=== PATIENT | male | born 1950 | race Caucasian/White ===

== ENCOUNTER 2022-03-12 10:35 | Emergency (ER) | payer BC, SELFPAY ==
--- NOTE | ~2022-03-12 | CT_ITS ---
EXAMINATION: CT HEAD WITHOUT CONTRAST CLINICAL INFORMATION: Status post fall with head strike. COMPARISON: None TECHNIQUE: Contiguous axial imaging was performed from the skull base to vertex without intravenous administration of contrast. Coronal and sagittal reformatted images were obtained. This CT examination was performed using dose optimization techniques as appropriate, variously including the following: *Automated exposure control *Adjustment of mA and/or kV according to patient size (this includes techniques or standardized protocols for targeted exams where dose is matched to indication/reason for exam; i.e. extremities or head) *Use of iterative reconstruction technique DLP: 10/21/2021 mGy-cm FINDINGS: There is mild widening of the cortical sulci and associated ventriculomegaly. Mild periventricular microvascular changes are seen. The lateral ventricles are symmetrical. The third and fourth ventricles are in their normal midline position. The basilar and prepontine cisterns are unremarkable. Asymmetric low-attenuation is seen posteriorly in the left parietal lobe extending to encephalomalacia posteriorly in the left occipital lobe in the distribution of the left posterior cerebral artery. There is no acute intra or extracerebral abnormality. There is no mass effect or midline shift. Sections through the bony calvarium are unremarkable. The orbits are intact. The paranasal sinuses are clear. The mastoid air cells are clear. CT/CT head/brain wo IV con IMPRESSION: No acute intracranial pathology. Chronic appearing left occipital lobe infarct. Correlate with patient history.
--- NOTE | ~2022-03-12 | CT_ITS ---
EXAMINATION: CT CERVICAL SPINE WITHOUT CONTRAST CLINICAL INFORMATION: Neck pain status post fall. COMPARISON: None TECHNIQUE: Multiple axial images of the cervical spine were obtained without the administration of intravenous contrast. Coronal and sagittal reformatted images were obtained. This CT examination was performed using dose optimization techniques as appropriate, variously including the following: *Automated exposure control *Adjustment of mA and/or kV according to patient size (this includes techniques or standardized protocols for targeted exams where dose is matched to indication/reason for exam; i.e. extremities or head) *Use of iterative reconstruction technique DLP: 395.31 mGy-cm FINDINGS: There is straightening of the normal cervical lordosis with normal spinal alignment. Moderate to severe multilevel degenerative disc disease is seen from C4-5 to C6-7 with disc space narrowing, marginal osteophyte formation and bilateral neural foraminal narrowing. Mild multilevel bilateral facet arthropathy is seen. The spinous processes are intact. The odontoid process is intact with mild articulating degenerative changes. The cervical soft tissues are unremarkable. There is no lymphadenopathy. Mild to moderate atherosclerosis is seen in the carotid bulbs bilaterally. The thyroid gland is unremarkable. CT/CT cervical spine wo IV con IMPRESSION: 1. Straightening of the normal cervical lordosis may be secondary to positioning and/or muscle spasm. 2. Multilevel degenerative changes without acute abnormality.
--- NOTE | ~2022-03-12 | XR_ITS ---
EXAMINATION: XR CHEST CLINICAL INFORMATION: Status post fall and neck pain. COMPARISON: None TECHNIQUE: Frontal view of the chest was obtained. FINDINGS: There is a right lower lobe patchy opacity with mild tenting of the right diaphragm and elevation of right hemidiaphragm. Rest of the lungs are clear and expanded. The heart size and progress clarities normal. No gross bony abnormality seen. There is mild dextro scoliosis of lower dorsal spine. XR/XR chest 1V IMPRESSION: Right lower lobe patchy opacity with tenting of the right diaphragm and elevation of right hemidiaphragm, suspicious for developing infiltrate
[2022-03-12 10:42] VITALS: BP 140/75; PULSE 100; RESP 18; TEMP 36.7; O2SAT 98; BMI 20.7
--- NOTE | 2022-03-12 10:56 | ED.FALL ---
HPI - Fall General Chief Complaint: Fall Stated Complaint: fall neck inj and cough covid + Time Seen by Provider: 03/12/22 10:55 Source: patient and family Mode of arrival: ambulatory Limitations: no limitations History of Present Illness HPI Narrative: 71 yo male with history of DVT in the past, HTN, DM2, hx CVA in 2019 noncompliant with medications who presents to the ER for evaluation after he was diagnosed with COVID a few days ago. He has been weak resulting in 2 falls at home a few days ago. He hit his head and has been having a stiff neck and neck pain. He reports cough and congestion with difficulty breathing at times. He has not been taking his diabetes medications and not checking his sugar. He denies any nausea, vomiting, abdominal pain he has had some intermittent fevers and chills. No dyspnea on exertion or chest pain. MD complaint: fall and other (weakness, cough, COVID+) Onset (ago): day(s) Fall from: standing Fall witnessed: yes, by family Place fall occurred: home Loss of consciousness: none Prolonged down time: no Symptoms prior to fall: none Context: tripped/slipped Location of injury: head and neck Severity: moderate Severity scale (1-10): 5 Quality: aching and spasming Associated symptoms (after fall): neck pain and shortness of breath Related Data Previous Rx's Medication Instructions Recorded albuterol sulfate 90 mcg/actuation 2 inh inhalation QID PRN shortness 03/12/22 aerosol inhaler of breath or wheezing #6.7 grams doxycycline hyclate 100 mg tablet 100 mg PO BID #20 tabs 03/12/22 glipizide 10 mg tablet 10 mg PO DAILY #30 tabs 03/12/22 metformin 1,000 mg tablet,extended 1,000 mg PO BID #60 tabs 03/12/22 release 24hr Allergies Allergy/AdvReac Type Severity Reaction Status Date / Time No Known Allergies Allergy Verified 03/12/22 10:49 Review of Systems Review of Systems: Constitutional: No Fever, + Chills ENT/Mouth: + sore throat, No Rhinorrhea, No Swallowing Difficulty Eyes: No Eye Pain, No Swelling, No Redness Cardiovascular: No Chest Pain, No SOB, No Orthopnea, No Edema Respiratory: + Cough, No Sputum, No Wheezing, No dyspnea Gastrointestinal: No Nausea, No Vomiting, No Diarrhea, No abdominal Pain Genitourinary: No Dysuria, No Urinary Frequency, No Hematuria Musculoskeletal: + joint pain, + Myalgias Skin: No Skin Lesions, No rash Neuro: + Weakness, No Numbness, No Dizziness, No Headache Psych: No Anxiety/Panic, No Depression Heme/Lymph: No Bruising, No Lymphadenopathy Endocrine: + Polyuria, + Polydipsia PMFSH Social History Social History Advance Directives: No Advance Directives Information Provided: Yes Physical Exam Vital Signs: Vital Signs: Last Vital Signs Temp 97.8 F 03/12/22 12:39 Pulse 61 03/12/22 12:39 Resp 14 03/12/22 12:39 BP 129/63 03/12/22 12:39 Pulse Ox 97 03/12/22 12:39 O2 Del Method 03/12/22 12:39 BMI result Body Mass Index 20.7 Appearance: Alert. Oriented X3. No acute distress. Head: scap on the posterior scalp Eyes: Pupils equal, round and reactive to light. ENT: Pharynx normal. Poor dentition Neck: Normal inspection. Neck supple. CVS: Normal heart rate and rhythm. Pulses normal. Respiratory: No respiratory distress. Breath sounds normal. Abdomen: Soft and nontender. +BS x4 Skin: Skin warm and dry. Normal skin color. Normal skin turgor. No rashes. Extremities: No lower extremity edema. chronic venous stasis changed R>L. dry flakey skin Neuro: Oriented X 3. Slow but steady gait. moderate diffuse weakness. Course Course Course Narrative: 71-year-old male with history of uncontrolled diabetes, noncompliant with medications, history of stroke in the past, PVD with recurring falls who presents to the ER for evaluation of neck pain, headaches, cough, shortness of breath after being diagnosed with COVID last week. Increased cough and congestion at home. On arrival to the ER patient's vital signs are stable. His lungs are clear. He is in no respiratory distress. Will check CT of his head and neck given recent trauma, basic labs, EKG, chest x-ray. Reevaluation(s) Reevaluation #1: Chest x-ray with possible evolving right lower lobe pneumonia. No leukocytosis on CBC. Chemistries unremarkable aside from significant hyperglycemia. Sugars 460. Hemoglobin A1c added on and is greater than 14%. Discussed the importance of compliance with medications and long-term affects of being noncompliant. Patient expressed understanding Seen by Physical therapy was recommending home with physical therapy services. Comfortable discharge home with family, oral antibiotics, p.r.n. albuterol and home PT. Additional prescriptions of his metformin and glipizide sent to his pharmacy. Consultations Consultation #1: Case management and physical therapy Medications Administered Discontinued Medications Generic Name Dose Route Start Last Admin Trade Name Freq PRN Reason Stop Dose Admin Sodium Chloride 1,000 mls @ 999 mls/hr 03/12/22 12:00 03/12/22 12:30 Ns IVCONT 03/12/22 13:00 999 mls/hr .Q1H1M CHERELLE Administration Insulin Human Lispro 12 unit 03/12/22 11:46 03/12/22 12:30 Insulin Lispro 100 Unit/Ml 3 Ml Vial SUBCUT 03/12/22 11:47 12 unit ONCE ONE Administration Metformin HCl 1,000 mg 03/12/22 11:47 03/12/22 12:29 Metformin Hcl 1,000 Mg Tablet PO 03/12/22 11:48 1,000 mg ONCE ONE Administration MDM - Fall Medical Records Attestation: I reviewed the patient's medical records. Lab Data Attestation: I reviewed the patient's lab results. Result diagrams: 03/12/22 11:03 03/12/22 11:03 Labs: Lab Results 03/12/22 03/12/22 03/12/22 Range/Units 11:03 11:03 11:03 WBC 10.8 (4.8-10.8) X10*3/uL RBC 5.35 (4.60-5.80) X10*6/uL Hgb 15.8 (14.0-18.0) g/dl Hct 44.9 (42.0-52.0) % MCV 83.9 (80.0-98.0) fL MCH 29.5 (27.0-33.0) pg MCHC 35.2 (31.0-36.0) g/dl RDW 11.7 (11.0-16.0) % Plt Count 326 (160-400) X10*3/uL MPV 9.6 (9.4-12.4) fL Immature Gran % (Auto) 0.4 (0.0-0.4) % Neut % (Auto) 77.8 H (45-73) % Lymph % (Auto) 12.6 L (20-40) % Edgar % (Auto) 8.1 (2-11) % Eos % (Auto) 0.7 (0-4) % Baso % (Auto) 0.4 (0-2) % Lymph # (Auto) 1.4 (1.2-4.9) X10*3/uL Edgar # (Auto) 0.9 (0.1-1.2) X10*3/uL Eos # (Auto) 0.1 (0.0-0.4) X10*3/uL Baso # (Auto) 0.0 (0.0-0.2) X10*3/uL Abs Immat Gran (auto) 0.04 H (0.00-0.03) X10*3/uL Absolute Neuts (auto) 8.4 H (2.0-8.3) x10*3/uL Absolute Nucleated RBC 0.000 (0.0-0.012) X10*3/uL Nucleated RBC % (auto) 0.0 (0.0-0.2) /100WBC PT 11.2 (10.0-13.1) SEC INR 1.0 (0.9-1.1) APTT 32.7 (26.0-36.4) SEC Sodium 136 (135-145) mmol/L Potassium 4.6 (3.3-5.1) mmol/L Chloride 95 L (96-108) mmol/L Carbon Dioxide 28 (22-29) mmol/L Anion Gap 18 (12-20) BUN 13 (9-16) mg/dL Creatinine 1.11 (0.5-1.4) mg/dL Estim Creat Clear Calc 50.9 Estimated GFR > 60 POC Glucose (60-115) mg/dL Random Glucose 462 H* (60-115) mg/dL Estimat Average Glucose Hemoglobin A1c % % Calcium 9.9 (8.4-10.2) mg/dL Magnesium 1.7 (1.6-2.6) mg/dL Total Bilirubin 0.5 (0.0-1.0) mg/dL Direct Bilirubin 0.3 (0.0-0.5) mg/dL AST 17 (5-37) U/L ALT 17 (0-40) U/L Alkaline Phosphatase 118 H (39-117) U/L Total Protein 7.5 (6.5-8.0) g/dL Albumin 3.7 (3.5-5.0) g/dL 03/12/22 03/12/22 Range/Units 11:03 14:10 WBC (4.8-10.8) X10*3/uL RBC (4.60-5.80) X10*6/uL Hgb (14.0-18.0) g/dl Hct (42.0-52.0) % MCV (80.0-98.0) fL MCH (27.0-33.0) pg MCHC (31.0-36.0) g/dl RDW (11.0-16.0) % Plt Count (160-400) X10*3/uL MPV (9.4-12.4) fL Immature Gran % (Auto) (0.0-0.4) % Neut % (Auto) (45-73) % Lymph % (Auto) (20-40) % Edgar % (Auto) (2-11) % Eos % (Auto) (0-4) % Baso % (Auto) (0-2) % Lymph # (Auto) (1.2-4.9) X10*3/uL Edgar # (Auto) (0.1-1.2) X10*3/uL Eos # (Auto) (0.0-0.4) X10*3/uL Baso # (Auto) (0.0-0.2) X10*3/uL Abs Immat Gran (auto) (0.00-0.03) X10*3/uL Absolute Neuts (auto) (2.0-8.3) x10*3/uL Absolute Nucleated RBC (0.0-0.012) X10*3/uL Nucleated RBC % (auto) (0.0-0.2) /100WBC PT (10.0-13.1) SEC INR (0.9-1.1) APTT (26.0-36.4) SEC Sodium (135-145) mmol/L Potassium (3.3-5.1) mmol/L Chloride (96-108) mmol/L Carbon Dioxide (22-29) mmol/L Anion Gap (12-20) BUN (9-16) mg/dL Creatinine (0.5-1.4) mg/dL Estim Creat Clear Calc Estimated GFR POC Glucose 338 H (60-115) mg/dL Random Glucose (60-115) mg/dL Estimat Average Glucose TNP Hemoglobin A1c % > 14.0 % Calcium (8.4-10.2) mg/dL Magnesium (1.6-2.6) mg/dL Total Bilirubin (0.0-1.0) mg/dL Direct Bilirubin (0.0-0.5) mg/dL AST (5-37) U/L ALT (0-40) U/L Alkaline Phosphatase (39-117) U/L Total Protein (6.5-8.0) g/dL Albumin (3.5-5.0) g/dL ECG Data Attestation: I personally reviewed and interpreted this ECG as follows: ECG interpretation date: 03/12/22 Prior ECG tracings: not available for review Interpretation: Normal sinus rhythm, ventricular rate 96 beats per minute, normal WI interval, artifact present in V3. No ST segment elevations or depressions. Normal QTC. Critical Care Time Critical Care Time Critical Care Time: No Discharge Plan Discharge Clinical Impression: COVID-19, Pneumonia, Uncontrolled diabetes mellitus with hyperglycemia Patient Disposition: Home, Self-Care Instructions: Pneumonia (ED), Diabetic Hyperglycemia (ED) Additional Instructions: Take the prescribed antibiotic as directed for small right lower lobe pneumonia. Use the prescribed inhaler as needed. IT IS IMPORTANT YOU TAKE ALL OF YOUR MEDICATIONS FOR DIABETES. Your sugar was 462. Your hemoglobin A1c was >14%. THIS IS BAD LEE. Metformin and glipizide prescriptions were sent to [facility]. Recommend baby aspirin 81 mg per day. Home physical therapy is being arranged. Prescriptions: New doxycycline hyclate 100 mg tablet 100 mg PO BID Qty: 20 0RF albuterol sulfate 90 mcg/actuation HFA aerosol inhaler 2 inh inhalation QID PRN (Reason: shortness of breath or wheezing) Qty: 6.7 0RF metformin 1,000 mg tablet extended release 24 hr 1,000 mg PO BID Qty: 60 0RF glipizide 10 mg tablet 10 mg PO DAILY Qty: 30 0RF Referrals: [facility] [place] [facility] [Provider Group] [facility] [Outside] Carlos Martinez MD [Physician] -
--- NOTE | 2022-03-12 10:57 | ECG_ITS ---
Test Reason : weakness Blood Pressure : / mmHG Vent. Rate : 096 BPM Atrial Rate : 096 BPM P-R Int : 148 ms QRS Dur : 090 ms QT Int : 354 ms P-R-T Axes : 083 060 088 degrees QTc Int : 447 ms Normal sinus rhythm Minimal voltage criteria for LVH, may be normal variant ( Jono product ) Abnormal ECG No previous ECGs available Referred By: Elle Lobato Electronically Signed By:Sam Contreras
[2022-03-12 11:08] LABS: MANUAL DIFF FLAG NO
[2022-03-12 11:12] LABS: Basophils Percent Auto 0.4 % (0-2); Eosinophils Absolute Auto 0.1 X10*3/uL (0.0-0.4); Eosinophils Percent Auto 0.7 % (0-4); Hematocrit 44.9 % (42.0-52.0); Hemoglobin 15.8 g/dl (14.0-18.0); Imm Gran Abs Auto 0.04 X10*3/uL (0.00-0.03); Imm Gran Pct Auto 0.4 % (0.0-0.4); Lymphocytes Absolute Auto 1.4 X10*3/uL (1.2-4.9); Lymphocytes Percent Auto 12.6 % (20-40); Mean Corpuscular HGB Conc 35.2 g/dl (31.0-36.0); Mean Corpuscular Hemoglobin 29.5 pg (27.0-33.0); Mean Corpuscular Volume 83.9 fL (80.0-98.0); Mean Platelet Volume 9.6 fL (9.4-12.4); Monocytes Absolute Auto 0.9 X10*3/uL (0.1-1.2); Monocytes Percent Auto 8.1 % (2-11); Neutrophils Absolute Auto 8.4 x10*3/uL (2.0-8.3); Neutrophils Percent Auto 77.8 % (45-73); Platelet Count 326 X10*3/uL (160-400); Red Blood Count 5.35 X10*6/uL (4.60-5.80); Red Cell Distribution Width 11.7 % (11.0-16.0); White Blood Count 10.8 X10*3/uL (4.8-10.8)
[2022-03-12 11:17] LABS: Prothrombin Time 11.2 SEC (10.0-13.1)
[2022-03-12 11:20] LABS: Partial Thromboplastin Time 32.7 SEC (26.0-36.4)
[2022-03-12 11:47] LABS: Alanine Aminotransferase 17 U/L (0-40); Albumin Level 3.7 g/dL (3.5-5.0); Alkaline Phosphatase 118 U/L (39-117); Anion Gap 18 (12-20); Aspartate Amino Transferase 17 U/L (5-37); Bilirubin Direct 0.3 mg/dL (0.0-0.5); Blood Urea Nitrogen 13 mg/dL (9-16); Calcium 9.9 mg/dL (8.4-10.2); Carbon Dioxide 28 mmol/L (22-29); Chloride 95 mmol/L (96-108); Creatinine Clr Calc Pharmacy 50.9; Estimated Glomerular Filt Rate > 60; Glucose Random 462 mg/dL (60-115); Magnesium 1.7 mg/dL (1.6-2.6); Potassium 4.6 mmol/L (3.3-5.1); Sodium 136 mmol/L (135-145); Total Protein 7.5 g/dL (6.5-8.0)
[2022-03-12] MEDS: metFORMIN HCl 1,000 MG TABLET 1000 MG PO (12:29)
[2022-03-12] MEDS: 0.9 % Sodium Chloride 1,000 ML 999 ML IVCONT (12:30)
[2022-03-12] MEDS: Insulin Lispro 100 UNIT/ML 3 ML VIAL 12 UNIT SUBCUT (12:30)
[2022-03-12 12:39] VITALS: BP 129/63; PULSE 61; RESP 14; TEMP 36.6; O2SAT 97
[2022-03-12 12:57] LABS: Hemoglobin A1c % > 14.0 %
[2022-03-12 13:28] LABS: Bilirubin Total 0.5 mg/dL (0.0-1.0)
[2022-03-12 14:14] LABS: Glucose, Whole Blood 338 mg/dL (60-115)
--- NOTE | 2022-03-12 15:51 | MHC.CM.ED ---
Received case management consult from Elle TRAN. Patient came to the ER due to fall. Work up essentially negative. Patient is positive for Covid. Physically therapy eval completed. Home therapy recommended. Patient will need penitentiary and physical therapy. PCP is Carlos Martinez. [facility] is able to accept patient. Patient aware [facility] will not start services until this weekend. Patient and family aware. Continue to monitor for d/c needs.
== END 2022-03-13 04:04 | disposition home or self-care (01) ==
PROVIDERS: Physician Assistant; Emergency Provider Emergency Medicine
DX: U07.1 COVID-19 (principal); J12.82 Pneumonia due to coronavirus disease 2019; E11.65 Type 2 diabetes mellitus with hyperglycemia; R53.1 Weakness; R29.6 Repeated falls; R06.02 Shortness of breath; M54.2 Cervicalgia; I10 Essential (primary) hypertension; Z86.718 Personal history of other venous thrombosis and embolism; Z86.73 Personal history of transient ischemic attack (TIA), and cerebral infarction without residual deficits; Z91.14 Patient's other noncompliance with medication regimen
CPT/HCPCS: 36415; 70450; 71045; 72125; 80048; 80076; 82947; 83036; 83735; 85025; 85610; 85730; 93005; 97162; 99284

== ENCOUNTER 2022-07-15 18:05 | Inpatient (IN) | payer BC, SELFPAY ==
--- NOTE | ~2022-07-15 | US_ITS ---
EXAMINATION: US ARTERIAL DUPLEX LOWER EXTREMITY BILATERAL CLINICAL INFORMATION: Cold feet. Pulses are not palpable. COMPARISON: No comparison arterial imaging examinations. TECHNIQUE: Duplex Doppler imaging and spectral waveform analysis of lower extremity arteries is performed. FINDINGS: RIGHT LOWER EXTREMITY: Common femoral artery, biphasic waveform, peak velocity of 110 cm/s Profunda femoris artery, biphasic waveform, peak velocity of 85 cm/s Proximal SFA, biphasic waveform, peak velocity of 93 cm/s Mid SFA, biphasic waveform, peak velocity of 78 cm/s Distal SFA, biphasic waveform, peak velocity of 110 cm/s Popliteal artery, biphasic waveform, peak velocity of 70 cm/s Posterior tibial and peroneal arteries are not visible on the Doppler imaging exam and could be severely stenosed or occluded. LEFT LOWER EXTREMITY: Common femoral artery, biphasic waveform, peak velocity of 157 cm/s Profunda femoris artery, biphasic waveform, peak velocity of 128 cm/s Proximal SFA, biphasic waveform, peak velocity of 107 cm/s Mid SFA, biphasic waveform, peak velocity of 115 cm/s Distal SFA, biphasic waveform, peak velocity of 120 cm/s Popliteal artery, biphasic waveform, peak velocity of 122 cm/s Posterior tibial artery has abnormal monophasic waveform, peak velocity is 60 cm/s Peroneal artery is difficult to visualize, biphasic waveform, peak velocity of 85 cm/s US/US arterial duplex LE BI IMPRESSION: * Although there are biphasic waveforms of bilateral femoral and popliteal arteries, there is no Doppler imaging evidence of a focal hemodynamically significant stenosis or occlusion of the examined femoral or popliteal arteries. * The lack of visualization of the posterior tibial and peroneal arteries of the right lower extremity suggests likelihood of significant stenosis or occlusion of these lower leg vessels. * There is evidence of hemodynamically significant stenosis affecting the left posterior tibial artery which has an abnormal monophasic waveform. * For a more complete anatomic assessment of the peripheral vessels, CT angiography-runoff examination could be performed. Alternatively, to further evaluate the severity of peripheral vascular disease, KESHA measurements and pulse volume recordings may be obtained at a dedicated vascular lab.
--- NOTE | ~2022-07-15 | US_ITS ---
EXAMINATION: US VENOUS ULTRASOUND WITH DOPPLER LOWER EXTREMITY, LEFT CLINICAL INFORMATION: Edema pain COMPARISON: None available. TECHNIQUE: Ultrasound of the deep veins is performed from the hip to the calf with compression sonography and color and pulse Doppler assessment. Spectral analysis with color-flow imaging is performed. FINDINGS: Echogenic material found within the left common femoral vein, the vein is completely occluded except for very peripheral intermittent flow. The clot involve the popliteal vein and into the vein below the knee peroneal vein. US/US venous duplex LE LT IMPRESSION: *POSITIVE DVT. 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 This critical result was discussed with Arminda Crawford by telephone at 07/15/2022 7:15 PM and it was ascertained that the content and urgency of the report was understood at the time of direct communication.
--- NOTE | ~2022-07-15 | CT_ITS ---
EXAMINATION: CT ANGIOGRAM OF THE CHEST WITH CONTRAST (CT PULMONARY ANGIOGRAM FOR PE) CT ABDOMEN/PELVIS WITH CONTRAST CLINICAL INFORMATION: Pulmonary embolism. COMPARISON: None TECHNIQUE: Prior to contrast administration, noncontrast localization images were obtained. Subsequently, multidetector volumetric imaging was performed from the thoracic inlet through the pubic symphysis following the administration of 80 mL Omnipaque 350 intravenous contrast. Postcontrast images of the chest were acquired during the pulmonary angiographic phase, while imaging through the abdomen and pelvis was performed during the portal venous phase. No contrast reaction reported Sagittal, coronal, and MIP oblique sagittal reformatted images were obtained on the CT workstation, uploaded to PACS, and reviewed. This CT examination was performed using dose optimization techniques as appropriate, variously including the following: *Automated exposure control *Adjustment of mA and/or kV according to patient size (this includes techniques or standardized protocols for targeted exams where dose is matched to indication/reason for exam; i.e. extremities or head) *Use of iterative reconstruction technique Total exam dose-length product 724 mGy-cm FINDINGS: QUALITY OF STUDY/CONTRAST BOLUS: Satisfactory. PULMONARY ARTERIES: There is a filling defect in the segmental pulmonary artery supplying the superior segment of the right lower lobe. No additional pulmonary emboli. THORACIC AORTA: No aneurysm or dissection. LUNG: No focal consolidation, nodules or masses. Diffuse moderate bronchial wall thickening without bronchiectasis. Scattered endobronchial secretions. Pleural parenchymal scarring and/or subsegmental atelectasis within the right middle lobe and lateral basal segment of the right lower lobe. There is a 4 mm subpleural nodule along the lateral basal segment of left lower lobe. PLEURA: No pleural effusion or pneumothorax. MEDIASTINUM: Normal heart size. No pericardial effusion. No hilar or mediastinal lymphadenopathy. No evidence of septal bowing or right heart strain. No reflux of contrast into the hepatic veins to suggest elevated right heart pressures. CHEST WALL/AXILLA: No axillary or internal mammary lymphadenopathy. HEPATOBILIARY: Liver normal in size, contour and morphology. No suspicious lesions. No intra or extrahepatic biliary dilation. Gallbladder unremarkable. PANCREAS: Unremarkable. SPLEEN: Unremarkable. ADRENAL GLANDS: Unremarkable. morphology demonstrating symmetric enhancement. There are bilateral simple renal cysts which are benign. No follow-up imaging recommended. No suspicious renal cysts or masses. No hydronephrosis or perinephric abnormality.. GASTROINTESTINAL TRACT: No bowel related abnormalities. PELVIC VISCERA: Unremarkable. LYMPH NODES: No lymphadenopathy. PERITONEUM/BODY WALL: Extensive subcutaneous and deep fat stranding and edema present about the left hip girdle musculature and extending into the left lower extremity. VASCULAR STRUCTURES: No thrombus present within the imaged left common femoral vein, left external iliac vein, left common iliac vein extending into the IVC to the level of L3-L4. There is also trace thrombus in the right common iliac vein. OSSEOUS STRUCTURES: No acute or suspicious osseous abnormalities. CT/CT abdomen pelvis w IV con IMPRESSION: * Small pulmonary embolism within the segmental pulmonary artery supplying the superior segment of the right lower lobe. * No evidence of right heart strain/failure. * Diffuse moderate bronchial wall thickening and scattered endobronchial secretions suggestive of bronchitis and/or asthma. * Deep venous thrombosis present within the left common femoral vein, left external iliac vein, left common iliac vein extending into the IVC to the level of L3-L4. There is also trace thrombus in the right common iliac vein * There is a 4 mm subpleural nodule along the lateral basal segment of left lower lobe. No follow-up imaging recommended required per Fleischner Society guidelines. VTE: positive This critical result was discussed with Dr Crawford at 07/16/2022 12:05 AM and it was ascertained that the content and urgency of the report was understood at the time of direct communication.
--- NOTE | ~2022-07-15 | CT_ITS ---
EXAMINATION: CT KNEE WITHOUT CONTRAST, LEFT CLINICAL INFORMATION: Left knee pain. Septic joint versus plateau fracture. COMPARISON: Left knee radiographs dated 07/15/2022. TECHNIQUE: Contiguous axial thin section helical images of the left knee were obtained without contrast. Multiplanar reformats were provided and reviewed. This CT examination was performed using dose optimization techniques as appropriate, variously including the following: *Automated exposure control *Adjustment of mA and/or kV according to patient size (this includes techniques or standardized protocols for targeted exams where dose is matched to indication/reason for exam; i.e. extremities or head) *Use of iterative reconstruction technique DLP: 229 mGy-cm FINDINGS: No acute fracture or dislocation. Normal anatomic alignment. Moderate medial compartment joint space narrowing with posterior subchondral cystic change, most prominent at the posterior aspect of the medial tibial plateau. Tricompartmental marginal osteophytes. No concerning lytic or blastic osseous lesion. Faint tricompartmental chondrocalcinosis. Trace joint effusion. Circumferential subcutaneous edema, most prominent anteriorly. No organized fluid collection or hematoma formation. Scattered atherosclerotic calcifications. The visualized muscles and tendons are grossly intact, however, evaluation is limited on CT examination. CT/CT knee LT wo IV con IMPRESSION: 1. No acute fracture or dislocation. 2. Tricompartmental osteoarthritis, most prominent within the medial compartment. Faint tricompartmental chondrocalcinosis. Trace joint effusion. 3. Circumferential subcutaneous edema, most prominent anteriorly. No organized fluid collection or hematoma formation.
--- NOTE | ~2022-07-15 | XR_ITS ---
EXAMINATION: XR BILATERAL HIPS WITH AP PELVIS CLINICAL INFORMATION: Hip pain COMPARISON: None available. TECHNIQUE: AP view of the pelvis and single views of each hip were obtained. FINDINGS: Possible nondisplaced fracture of the right aspect of the pubic symphysis seen only on one view. Bilateral hip joints are preserved. Sacroiliac and hip joints are normal. Pubic symphysis is normal. No abnormal soft tissue calcifications. XR/XR hip BI w PEL1V IMPRESSION: Possible nondisplaced fracture of the right aspect of the pubic symphysis seen only on one view. Recommend correlation with point tenderness.
--- NOTE | ~2022-07-15 | XR_ITS ---
EXAMINATION: XR KNEE, LEFT CLINICAL INFORMATION: Pain, swelling. COMPARISON: None available. TECHNIQUE: Four views of the left knee. FINDINGS: Cortical irregularity along the posterior surface of the tibial plateau on the lateral view. No subluxation. Moderate joint space narrowing of the medial compartment with subcortical sclerosis. Mild patellofemoral joint space narrowing. Subtle chondrocalcinosis. Small joint effusion. Scattered vascular calcifications. Diffuse nonspecific soft tissue thickening/swelling. XR/XR knee LT 4V IMPRESSION: 1. Nonspecific cortical irregularity along the posterior surface of the tibial plateau, likely degenerative in nature with well-corticated margins, however a nondisplaced fracture is difficult to exclude, recommend relation with point tenderness. 2. Moderate degenerative osteoarthritis of the medial compartment. 3. Small joint effusion. 4. Subtle chondrocalcinosis. 5. Diffuse nonspecific soft tissue thickening/swelling.
[2022-07-15 18:09] VITALS: BP 115/73; PULSE 90; RESP 18; TEMP 36.8; O2SAT 99; BMI 23.3
--- NOTE | 2022-07-15 18:09 | ED_ITS ---
HPI - General Adult General Chief complaint: Extremity Problem <MARC Stovall - Last Filed: 07/15/22 18:20> Stated complaint: knee pain, diabetic <MARC Stovall Last Filed: 07/15/22 18:20> Time Seen by Provider: 07/15/22 18:24 <MARC Stovall Last Filed: 07/15/22 18:20> Source: patient <MARC Chung Last Filed: 07/16/22 01:52> Mode of arrival: ambulatory <MARC Chung Last Filed: 07/16/22 01:52> Limitations: no limitations <MARC Chung Last Filed: 07/16/22 01:52> History of Present Illness HPI narrative: This is a 71-year-old male history of stroke in 2019 with residual weakness in visual disturbances, alcohol abuse, diabetic with an A1c of greater than 14, DVT on Coumadin however non med compliant, cocaine abuse presenting to the emergency department with complaints that he has not been able to walk, he is reporting 2 weeks of left knee and left lower extremity pain and swelling. He also reports that his left knee is warm and red. Is been worsening rapidly per patient. He tells me he has been using a walker to ambulate however he typically does not use one at home. Patient denies fevers, chills, chest pain, shortness of breath, nausea, vomiting, headache, vision changes, dizziness, weakness, abdominal pain, numbness, tingling <MARC Chung Last Filed: 07/16/22 01:52> Related Data Home medications: Home Medications Medication Instructions Recorded Confirmed atorvastatin 80 mg tablet 80 mg PO DAILY 07/15/22 07/15/22 lisinopril 10 mg tablet 10 mg PO DAILY 07/15/22 07/15/22 warfarin 3 mg tablet 3 mg PO DAILY@1800 07/15/22 07/15/22 Previous Rx's Medication Instructions Recorded albuterol sulfate 90 mcg/actuation 2 inh inhalation QID PRN shortness 03/12/22 aerosol inhaler of breath or wheezing #6.7 grams glipizide 10 mg tablet 10 mg PO DAILY #30 tabs 12/01/22 metformin 500 mg tablet 1,000 mg PO BID DM #60 tabs 03/15/22 <MARC Stovall - Last Filed: 07/15/22 18:20> Allergies/adverse reactions: Allergies Allergy/AdvReac Type Severity Reaction Status Date / Time No Known Allergies Allergy Verified 03/12/22 10:49 <MARC Stovall - Last Filed: 07/15/22 18:20> Review of Systems Review of Systems: Constitutional : No Weight loss, No Fever, No Chills, No Fatigue, No Malaise ENT/Mouth : No sore throat, No Rhinorrhea Eyes: No Eye Pain, No Swelling, No Redness Cardiovascular : No Chest Pain, No SOB, No Dyspnea on Exertion, No Orthopnea, No Edema, No Palpitations Respiratory : No Cough, No Sputum, No Wheezing Gastrointestinal : No Nausea, No Vomiting, No Diarrhea, No Constipation, No abdominal Pain, No Hematochezia, No Melena Genitourinary : No Dysuria, No Urinary Frequency, No Hematuria, Musculoskeletal : + joint pain, No Myalgias, + Joint Swelling Skin : No Skin Lesions, No rash Neuro : No Weakness, No Numbness, No Dizziness, No Headache Psych : No Anxiety/Panic, No Depression All other systems reviewed and are negative <MARC Chung - Last Filed: 07/16/22 01:52> Yes all other systems are reviewed and are negative <MARC Chung - Last Filed: 07/16/22 01:52> FOR[facility]LY [facility] Past Medical History Attestation statement: The following information was validated with the patient. <MARC Chung - Last Filed: 07/16/22 01:52> Source: old records reviewed and nursing notes reviewed <MARC Chung - Last Filed: 07/16/22 01:52> Social History Social History: Social History Alcohol intake: current Alcohol intake frequency: a few times a month Smoked in Last 30 Days: Yes Use of substances other than those prescribed or required for medical reasons: Yes Substance Use Type: Crack/Cocaine Advance Directives: No Advance Directives Information Provided: No <MARC Stovall Last Filed: 07/15/22 18:20> Physical Exam ED Vital Signs: Vital Signs - 24 hr 07/15/22 18:09 07/15/22 22:01 07/15/22 22:19 Temperature 98.2 F 98.2 F Pulse Rate 90 76 77 Respiratory Rate 18 13 13 Blood Pressure 115/73 91/41 L 96/45 L Pulse Oximetry 99 96 97 Oxygen Delivery Method Room Air Room Air Room Air 07/15/22 22:42 07/16/22 01:17 07/16/22 01:21 Temperature Pulse Rate 79 70 Respiratory Rate 16 15 Blood Pressure 120/60 70/48 L 87/50 L Pulse Oximetry 95 Oxygen Delivery Method Room Air 07/16/22 01:24 07/16/22 01:33 Temperature Pulse Rate Respiratory Rate Blood Pressure 95/46 L 94/53 L Pulse Oximetry Oxygen Delivery Method BMI result Body Mass Index 25.2 <MARC Stovall Last Filed: 07/15/22 18:20> Vital Signs - 24 hr 07/15/22 18:09 07/15/22 22:01 07/15/22 22:19 Temperature 98.2 F 98.2 F Pulse Rate 90 76 77 Respiratory Rate 18 13 13 Blood Pressure 115/73 91/41 L 96/45 L Pulse Oximetry 99 96 97 Oxygen Delivery Method Room Air Room Air Room Air 07/15/22 22:42 07/16/22 01:17 07/16/22 01:21 Temperature Pulse Rate 79 70 Respiratory Rate 16 15 Blood Pressure 120/60 70/48 L 87/50 L Pulse Oximetry 95 Oxygen Delivery Method Room Air 07/16/22 01:24 07/16/22 01:33 Temperature Pulse Rate Respiratory Rate Blood Pressure 95/46 L 94/53 L Pulse Oximetry Oxygen Delivery Method BMI result Body Mass Index 25.2 vss <MARC Chung Last Filed: 07/16/22 01:52> Appearance: Alert.? Oriented X3.? No acute distress.? Head: Normocephalic, atraumatic, no step-offs or deformities Eyes: Pupils equal, round and reactive to light.? Neck: Normal inspection.? Neck supple.? CVS: Normal heart rate and rhythm.? Pulses normal.? Respiratory: No respiratory distress.? Breath sounds normal.? Abdomen: Soft and nontender.? Skin: Skin warm and dry.? Normal skin color.? Normal skin turgor.? Extremities: No calf ttp. 5/5 strength to bilateral upper and lower extremities + 2+ nonpitting edema to left lower extremity, there is significant swelling appreciated overlying the left knee with erythema, warmth and discomfort with palpation. Patient has full painless range of motion to left knee however. 2+ popliteal, dorsalis pedis, anterior tibialis pulses equal bilateral. Normal right lower extremity without edema. Back: No midline tenderness, no C-spine tenderness, full range of motion, no CVA tenderness bilaterally Neuro: Oriented X 3.? No motor deficit.? No sensory deficit. CN 2-12 intact <MARC Chung Last Filed: 07/16/22 01:52> Course Course Course Narrative: RME - 71 y/o male with history of DVT in the past on Coumadin, HTN, DM2, hx CVA in 2019 noncompliant with medications?who presents to the ER for evaluation of 10/10 left knee pain and swelling that started 2 weeks ago and has been getting worse. Can no longer ambulate. Left lower leg is swollen and taught, warm with cold feet bilaterally, unable to palpate pulses. Plan: arterial studies, r/o DVT in LLE, labs and knee x-ray. <MARC Lopes - Last Filed: 07/15/22 18:20> Reevaluation(s) Reevaluation #1: CBC within normal limits. Chemistry with low sodium 133 and in acute kidney injury likely secondary to poor p.o. intake or dehydration. Patient also noted to have a glucose of 562, IV fluids and insulin ordered. Patient COVID negative. X-ray of left knee with nonspecific cortical irregularity along the posterior surface of the tibial plateau likely degenerative. Nondisplaced fracture is difficult to exclude, CT ordered for clarification. 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 Small joint effus ion and subtle chondrocalcinosis noted. Venous duplex consistent with complete occlusion of the left common femoral through peroneal veins. CT an arterial scan pending <MARC Chung Last Filed: 07/16/22 01:52> Time: 21:04 <MARC Chung Last Filed: 07/16/22 01:52> Reevaluation #2: Arterial scan with biphasic waveforms with bilateral femoral and popliteal arteries there is no Doppler imaging evidence of focal hemodynamically significant stenosis or occlusion on the exam and femoral or popliteal arteries. The lack of visualization of posterior tib and peroneal arteries of right lower extremity suggest likelihood of significant stenosis or occlusion of these lower leg vessels. Patient does have palpable pulses I do not suspect arterial occlusion. Patient w/ normal sensation not complaining of pain or discomfort to RLE. Discussed case w/ who evaluated patient and agrees that this is unlikely an arterial occlusion. He recommends CT of the chest, abdomen. <MARC Chung - Last Filed: 07/16/22 01:52> Time: 21:45 <MARC Chung - Last Filed: 07/16/22 01:52> Reevaluation #3: recommends heparin drip. CTA chest and abdomen ordered to r/o PE and maliganncy. Although patient received Lovenox he recommends giving heparin at this time w/o bolus. NPO after midngiht <MARC Chung - Last Filed: 07/16/22 01:52> Time: 22:35 <MARC Chung - Last Filed: 07/16/22 01:52> Additional Reevaluation(s): Patient will be admitted to the hospitalist team, hospitalist aware of plan. CTA with small pulmonary emboli in the segmental pulmonary artery in the right lower lobe. No signs of heart strain. DVT present within the left common femoral vein left external iliac, left common iliac vein extending into the IVC and the level of L3-L4. There is also trace thrombus in the right common iliac vein. Unremarkable CT of the abdomen and pelvis. My attending Dr. Farley recommends starting heparin now. Heparin ordered by him and started. WIll be seen by vascular hospitalist aware of this. 0148 Patient's pressures now soft. Patient remains asymptomatic no chest pain or shortness of breath. Discussed this case with hospitalist not appropriate to go to the floor. Patient will go to the intensive care unit. Discussed case with Dr. Joseph who agrees <MARC Chung - Last Filed: 07/16/22 01:52> Medications Administered Discontinued Medications Generic Name Dose Route Start Last Admin Trade Name Freq PRN Reason Stop Dose Admin Enoxaparin Sodium 65 mg 07/15/22 21:30 07/15/22 22:12 Enoxaparin Sodium 80 Mg/0.8 Ml Syringe SUBCUT 07/15/22 21:31 65 mg ONCE ONE Administration Piperacillin Sod/Tazobactam 50 mls @ 100 mls/hr 07/15/22 20:02 07/15/22 21:39 Sod 3.375 gm/ Sodium Chloride IV 07/15/22 20:31 Infused ONCE ONE Infusion Sodium Chloride 1,000 mls @ 999 mls/hr 07/15/22 20:37 07/15/22 22:01 Ns IV 07/15/22 21:37 Infused .Q1H1M ONE Infusion Sodium Chloride 1,000 mls @ 999 mls/hr 07/15/22 22:30 07/15/22 23:00 Ns IV 07/15/22 23:30 Infused .Q1H1M CHERELLE Infusion Sodium Chloride 1,000 mls @ 999 mls/hr 07/15/22 22:45 07/16/22 00:19 Ns IV 07/15/22 23:45 Infused .Q1H1M CHERELLE Infusion Heparin Sodium/Sodium Chloride 25,000 unit in 250 mls @ 0 mls/hr 07/16/22 00:09 07/16/22 00:45 Heparin Sodium,Porcine/1/2ns IVCONT 07/16/22 00:10 14 units/kg/hr .Q0M STA 9.65 mls/hr Administration Protocol Per Protocol Insulin Human Regular 10 unit 07/15/22 20:35 07/15/22 21:04 Insulin Regular, Human 100 Unit/Ml 3 Ml Vial IVPUSH 07/15/22 20:36 10 unit ONCE ONE Administration Iohexol 85 ml 07/15/22 23:32 07/15/22 23:32 Iohexol 350 Mg/Ml 100 Ml Infus..Btl IV 07/15/22 23:33 85 ml ONCE ONE Administration <MARC Stovall - Last Filed: 07/15/22 18:20> Medications Administered Discontinued Medications Generic Name Dose Route Start Last Admin Trade Name Enriqueq PRN Reason Stop Dose Admin Enoxaparin Sodium 65 mg 07/15/22 21:30 07/15/22 22:12 Enoxaparin Sodium 80 Mg/0.8 Ml Syringe SUBCUT 07/15/22 21:31 65 mg ONCE ONE Administration Piperacillin Sod/Tazobactam 50 mls @ 100 mls/hr 07/15/22 20:02 07/15/22 21:39 Sod 3.375 gm/ Sodium Chloride IV 07/15/22 20:31 Infused ONCE ONE Infusion Sodium Chloride 1,000 mls @ 999 mls/hr 07/15/22 20:37 07/15/22 22:01 Ns IV 07/15/22 21:37 Infused .Q1H1M ONE Infusion Sodium Chloride 1,000 mls @ 999 mls/hr 07/15/22 22:30 07/15/22 23:00 Ns IV 07/15/22 23:30 Infused .Q1H1M CHERELLE Infusion Sodium Chloride 1,000 mls @ 999 mls/hr 07/15/22 22:45 07/16/22 00:19 Ns IV 07/15/22 23:45 Infused .Q1H1M CHERELLE Infusion Heparin Sodium/Sodium Chloride 25,000 unit in 250 mls @ 0 mls/hr 07/16/22 00:09 07/16/22 00:45 Heparin Sodium,Porcine/1/2ns IVCONT 07/16/22 00:10 14 units/kg/hr .Q0M STA 9.65 mls/hr Administration Protocol Per Protocol Insulin Human Regular 10 unit 07/15/22 20:35 07/15/22 21:04 Insulin Regular, Human 100 Unit/Ml 3 Ml Vial IVPUSH 07/15/22 20:36 10 unit ONCE ONE Administration Iohexol 85 ml 07/15/22 23:32 07/15/22 23:32 Iohexol 350 Mg/Ml 100 Ml Infus..Btl IV 07/15/22 23:33 85 ml ONCE ONE Administration <MARC Chung - Last Filed: 07/16/22 01:52> Medical Decision Making Medical Decision Making MDM Narrative: 2000 71-year-old male presents with complaints of left lower extremity pain and swelling, and left knee pain, reports he has not been able to ambulate. Patient anticoagulated on Coumadin however not med compliant. Physical exam significant for No calf ttp. 5/5 strength to bilateral upper and lower extremities + 2+ nonpitting edema to left lower extremity, there is significant swelling appreciated overlying the left knee with erythema, warmth and discomfort with palpation. Patient has full painless range of motion to left knee however. 2+ popliteal, dorsalis pedis, anterior tibialis pulses equal bilateral. Normal right lower extremity without edema. Concerns for DVT and cellulitis of left knee. Unlikely septic joint, arterial occlusion. Other differentials include inflammatory arthritis, effusion of knee. No signs of neurovascular compromise or threatened limb. Plan labs, imaging, blood cultures, lactic acid, ultrasound an arterial scan <MARC Chung - Last Filed: 07/16/22 01:52> Differential Diagnosis Differential Diagnoses: The differential diagnosis associated with the presentation includes <MARC Chung Last Filed: 07/16/22 01:52> Concerns for DVT and cellulitis of left knee. Unlikely septic joint, arterial occlusion. Other differentials include inflammatory arthritis, effusion of knee. No signs of neurovascular compromise or threatened limb. <MARC Chung - Last Filed: 07/16/22 01:52> Admission/Observation Consideration of admission/observation: Escalation of care including admission/observation considered <MARC Chung Last Filed: 07/16/22 01:52> Likely <MARC Chung Last Filed: 07/16/22 01:52> Lab Data MDM Lab Attestation statement: I reviewed the patient's lab results. <MARC Chung - Last Filed: 07/16/22 01:52> Result Diagrams: 07/15/22 19:58 07/15/22 19:58 <MARC Stovall Last Filed: 07/15/22 18:20> Labs: Lab Results 07/15/22 07/15/22 07/15/22 Range/Units 19:58 19:58 19:58 WBC 9.9 (4.8-10.8) X10*3/uL RBC 5.12 (4.60-5.80) X10*6/uL Hgb 15.3 (14.0-18.0) g/dl Hct 43.2 (42.0-52.0) % MCV 84.4 (80.0-98.0) fL MCH 29.9 (27.0-33.0) pg MCHC 35.4 (31.0-36.0) g/dl RDW 12.4 (11.0-16.0) % Plt Count 186 D (160-400) X10*3/uL MPV 10.1 (9.4-12.4) fL Immature Gran % (Auto) 0.4 (0.0-0.4) % Neut % (Auto) 81.6 H (45-73) % Lymph % (Auto) 10.6 L (20-40) % [place] % (Auto) 6.0 (2-11) % Eos % (Auto) 1.0 (0-4) % Baso % (Auto) 0.4 (0-2) % Lymph # (Auto) 1.1 L (1.2-4.9) X10*3/uL [place] # (Auto) 0.6 (0.1-1.2) X10*3/uL Eos # (Auto) 0.1 (0.0-0.4) X10*3/uL Baso # (Auto) 0.0 (0.0-0.2) X10*3/uL Abs Immat Gran (auto) 0.04 H (0.00-0.03) X10*3/uL Absolute Neuts (auto) 8.1 (2.0-8.3) x10*3/uL Absolute Nucleated RBC 0.000 (0.0-0.012) X10*3/uL Nucleated RBC % (auto) 0.0 (0.0-0.2) /100WBC ESR (0-15) MM/HR PT 10.3 (10.0-13.1) SEC INR 0.9 (0.9-1.1) APTT 35.9 (26.0-36.4) SEC Sodium 133 L (135-145) mmol/L Potassium 4.5 (3.3-5.1) mmol/L Chloride 95 L (96-108) mmol/L Carbon Dioxide 26 (22-29) mmol/L Anion Gap 17 (12-20) BUN 19 H (9-16) mg/dL Creatinine 1.61 H (0.5-1.4) mg/dL Estim Creat Clear Calc 36.0 Estimated GFR 42 POC Glucose (60-115) mg/dL Random Glucose 562 H* (60-115) mg/dL Lactic Acid (0.5-2.0) mmol/L Calcium 9.8 (8.4-10.2) mg/dL Magnesium 2.0 (1.6-2.6) mg/dL Total Bilirubin 0.6 (0.0-1.0) mg/dL Direct Bilirubin 0.2 (0.0-0.5) mg/dL AST 12 (5-37) U/L ALT 8 (0-40) U/L Alkaline Phosphatase 146 H (39-117) U/L C-Reactive Protein 6.87 H (< or = 0.50) mg/dL B-Natriuretic Peptide (<100) pg/mL Total Protein 7.8 (6.5-8.0) g/dL Albumin 4.4 (3.5-5.0) g/dL COVID-19 ([facility]) (Negative) COVID-19 Clin Com 07/15/22 07/15/22 07/15/22 Range/Units 19:58 19:58 19:58 WBC (4.8-10.8) X10*3/uL RBC (4.60-5.80) X10*6/uL Hgb (14.0-18.0) g/dl Hct (42.0-52.0) % MCV (80.0-98.0) fL MCH (27.0-33.0) pg MCHC (31.0-36.0) g/dl RDW (11.0-16.0) % Plt Count (160-400) X10*3/uL MPV (9.4-12.4) fL Immature Gran % (Auto) (0.0-0.4) % Neut % (Auto) (45-73) % Lymph % (Auto) (20-40) % [place] % (Auto) (2-11) % Eos % (Auto) (0-4) % Baso % (Auto) (0-2) % Lymph # (Auto) (1.2-4.9) X10*3/uL [place] # (Auto) (0.1-1.2) X10*3/uL Eos # (Auto) (0.0-0.4) X10*3/uL Baso # (Auto) (0.0-0.2) X10*3/uL Abs Immat Gran (auto) (0.00-0.03) X10*3/uL Absolute Neuts (auto) (2.0-8.3) x10*3/uL Absolute Nucleated RBC (0.0-0.012) X10*3/uL Nucleated RBC % (auto) (0.0-0.2) /100WBC ESR 28 H (0-15) MM/HR PT (10.0-13.1) SEC INR (0.9-1.1) APTT (26.0-36.4) SEC Sodium (135-145) mmol/L Potassium (3.3-5.1) mmol/L Chloride (96-108) mmol/L Carbon Dioxide (22-29) mmol/L Anion Gap (12-20) BUN (9-16) mg/dL Creatinine (0.5-1.4) mg/dL Estim Creat Clear Calc Estimated GFR POC Glucose (60-115) mg/dL Random Glucose (60-115) mg/dL Lactic Acid (0.5-2.0) mmol/L Calcium (8.4-10.2) mg/dL Magnesium (1.6-2.6) mg/dL Total Bilirubin (0.0-1.0) mg/dL Direct Bilirubin (0.0-0.5) mg/dL AST (5-37) U/L ALT (0-40) U/L Alkaline Phosphatase (39-117) U/L C-Reactive Protein (< or = 0.50) mg/dL B-Natriuretic Peptide 37 (<100) pg/mL Total Protein (6.5-8.0) g/dL Albumin (3.5-5.0) g/dL COVID-19 ([facility]) Negative (Negative) COVID-19 Clin Com See Note 07/15/22 07/16/22 Range/Units 20:49 01:28 WBC (4.8-10.8) X10*3/uL RBC (4.60-5.80) X10*6/uL Hgb (14.0-18.0) g/dl Hct (42.0-52.0) % MCV (80.0-98.0) fL MCH (27.0-33.0) pg MCHC (31.0-36.0) g/dl RDW (11.0-16.0) % Plt Count (160-400) X10*3/uL MPV (9.4-12.4) fL Immature Gran % (Auto) (0.0-0.4) % Neut % (Auto) (45-73) % Lymph % (Auto) (20-40) % [place] % (Auto) (2-11) % Eos % (Auto) (0-4) % Baso % (Auto) (0-2) % Lymph # (Auto) (1.2-4.9) X10*3/uL [place] # (Auto) (0.1-1.2) X10*3/uL Eos # (Auto) (0.0-0.4) X10*3/uL Baso # (Auto) (0.0-0.2) X10*3/uL Abs Immat Gran (auto) (0.00-0.03) X10*3/uL Absolute Neuts (auto) (2.0-8.3) x10*3/uL Absolute Nucleated RBC (0.0-0.012) X10*3/uL Nucleated RBC % (auto) (0.0-0.2) /100WBC ESR (0-15) MM/HR PT (10.0-13.1) SEC INR (0.9-1.1) APTT (26.0-36.4) SEC Sodium (135-145) mmol/L Potassium (3.3-5.1) mmol/L Chloride (96-108) mmol/L Carbon Dioxide (22-29) mmol/L Anion Gap (12-20) BUN (9-16) mg/dL Creatinine (0.5-1.4) mg/dL Estim Creat Clear Calc Estimated GFR POC Glucose 167 H (60-115) mg/dL Random Glucose (60-115) mg/dL Lactic Acid 1.7 (0.5-2.0) mmol/L Calcium (8.4-10.2) mg/dL Magnesium (1.6-2.6) mg/dL Total Bilirubin (0.0-1.0) mg/dL Direct Bilirubin (0.0-0.5) mg/dL AST (5-37) U/L ALT (0-40) U/L Alkaline Phosphatase (39-117) U/L C-Reactive Protein (< or = 0.50) mg/dL B-Natriuretic Peptide (<100) pg/mL Total Protein (6.5-8.0) g/dL Albumin (3.5-5.0) g/dL COVID-19 ([facility]) (Negative) COVID-19 Clin Com <MARC Stovall - Last Filed: 07/15/22 18:20> Lab Results 07/15/22 07/15/22 07/15/22 Range/Units 19:58 19:58 19:58 WBC 9.9 (4.8-10.8) X10*3/uL RBC 5.12 (4.60-5.80) X10*6/uL Hgb 15.3 (14.0-18.0) g/dl Hct 43.2 (42.0-52.0) % MCV 84.4 (80.0-98.0) fL MCH 29.9 (27.0-33.0) pg MCHC 35.4 (31.0-36.0) g/dl RDW 12.4 (11.0-16.0) % Plt Count 186 D (160-400) X10*3/uL MPV 10.1 (9.4-12.4) fL Immature Gran % (Auto) 0.4 (0.0-0.4) % Neut % (Auto) 81.6 H (45-73) % Lymph % (Auto) 10.6 L (20-40) % [place] % (Auto) 6.0 (2-11) % Eos % (Auto) 1.0 (0-4) % Baso % (Auto) 0.4 (0-2) % Lymph # (Auto) 1.1 L (1.2-4.9) X10*3/uL [place] # (Auto) 0.6 (0.1-1.2) X10*3/uL Eos # (Auto) 0.1 (0.0-0.4) X10*3/uL Baso # (Auto) 0.0 (0.0-0.2) X10*3/uL Abs Immat Gran (auto) 0.04 H (0.00-0.03) X10*3/uL Absolute Neuts (auto) 8.1 (2.0-8.3) x10*3/uL Absolute Nucleated RBC 0.000 (0.0-0.012) X10*3/uL Nucleated RBC % (auto) 0.0 (0.0-0.2) /100WBC ESR (0-15) MM/HR PT 10.3 (10.0-13.1) SEC INR 0.9 (0.9-1.1) APTT 35.9 (26.0-36.4) SEC Sodium 133 L (135-145) mmol/L Potassium 4.5 (3.3-5.1) mmol/L Chloride 95 L (96-108) mmol/L Carbon Dioxide 26 (22-29) mmol/L Anion Gap 17 (12-20) BUN 19 H (9-16) mg/dL Creatinine 1.61 H (0.5-1.4) mg/dL Estim Creat Clear Calc 36.0 Estimated GFR 42 POC Glucose (60-115) mg/dL Random Glucose 562 H* (60-115) mg/dL Lactic Acid (0.5-2.0) mmol/L Calcium 9.8 (8.4-10.2) mg/dL Magnesium 2.0 (1.6-2.6) mg/dL Total Bilirubin 0.6 (0.0-1.0) mg/dL Direct Bilirubin 0.2 (0.0-0.5) mg/dL AST 12 (5-37) U/L ALT 8 (0-40) U/L Alkaline Phosphatase 146 H (39-117) U/L C-Reactive Protein 6.87 H (< or = 0.50) mg/dL B-Natriuretic Peptide (<100) pg/mL Total Protein 7.8 (6.5-8.0) g/dL Albumin 4.4 (3.5-5.0) g/dL COVID-19 ([facility]) (Negative) COVID-19 Clin Com 07/15/22 07/15/22 07/15/22 Range/Units 19:58 19:58 19:58 WBC (4.8-10.8) X10*3/uL RBC (4.60-5.80) X10*6/uL Hgb (14.0-18.0) g/dl Hct (42.0-52.0) % MCV (80.0-98.0) fL MCH (27.0-33.0) pg MCHC (31.0-36.0) g/dl RDW (11.0-16.0) % Plt Count (160-400) X10*3/uL MPV (9.4-12.4) fL Immature Gran % (Auto) (0.0-0.4) % Neut % (Auto) (45-73) % Lymph % (Auto) (20-40) % [place] % (Auto) (2-11) % Eos % (Auto) (0-4) % Baso % (Auto) (0-2) % Lymph # (Auto) (1.2-4.9) X10*3/uL [place] # (Auto) (0.1-1.2) X10*3/uL Eos # (Auto) (0.0-0.4) X10*3/uL Baso # (Auto) (0.0-0.2) X10*3/uL Abs Immat Gran (auto) (0.00-0.03) X10*3/uL Absolute Neuts (auto) (2.0-8.3) x10*3/uL Absolute Nucleated RBC (0.0-0.012) X10*3/uL Nucleated RBC % (auto) (0.0-0.2) /100WBC ESR 28 H (0-15) MM/HR PT (10.0-13.1) SEC INR (0.9-1.1) APTT (26.0-36.4) SEC Sodium (135-145) mmol/L Potassium (3.3-5.1) mmol/L Chloride (96-108) mmol/L Carbon Dioxide (22-29) mmol/L Anion Gap (12-20) BUN (9-16) mg/dL Creatinine (0.5-1.4) mg/dL Estim Creat Clear Calc Estimated GFR POC Glucose (60-115) mg/dL Random Glucose (60-115) mg/dL Lactic Acid (0.5-2.0) mmol/L Calcium (8.4-10.2) mg/dL Magnesium (1.6-2.6) mg/dL Total Bilirubin (0.0-1.0) mg/dL Direct Bilirubin (0.0-0.5) mg/dL AST (5-37) U/L ALT (0-40) U/L Alkaline Phosphatase (39-117) U/L C-Reactive Protein (< or = 0.50) mg/dL B-Natriuretic Peptide 37 (<100) pg/mL Total Protein (6.5-8.0) g/dL Albumin (3.5-5.0) g/dL COVID-19 ([facility]) Negative (Negative) COVID-19 Clin Com See Note 07/15/22 07/16/22 Range/Units 20:49 01:28 WBC (4.8-10.8) X10*3/uL RBC (4.60-5.80) X10*6/uL Hgb (14.0-18.0) g/dl Hct (42.0-52.0) % MCV (80.0-98.0) fL MCH (27.0-33.0) pg MCHC (31.0-36.0) g/dl RDW (11.0-16.0) % Plt Count (160-400) X10*3/uL MPV (9.4-12.4) fL Immature Gran % (Auto) (0.0-0.4) % Neut % (Auto) (45-73) % Lymph % (Auto) (20-40) % [place] % (Auto) (2-11) % Eos % (Auto) (0-4) % Baso % (Auto) (0-2) % Lymph # (Auto) (1.2-4.9) X10*3/uL [place] # (Auto) (0.1-1.2) X10*3/uL Eos # (Auto) (0.0-0.4) X10*3/uL Baso # (Auto) (0.0-0.2) X10*3/uL Abs Immat Gran (auto) (0.00-0.03) X10*3/uL Absolute Neuts (auto) (2.0-8.3) x10*3/uL Absolute Nucleated RBC (0.0-0.012) X10*3/uL Nucleated RBC % (auto) (0.0-0.2) /100WBC ESR (0-15) MM/HR PT (10.0-13.1) SEC INR (0.9-1.1) APTT (26.0-36.4) SEC Sodium (135-145) mmol/L Potassium (3.3-5.1) mmol/L Chloride (96-108) mmol/L Carbon Dioxide (22-29) mmol/L Anion Gap (12-20) BUN (9-16) mg/dL Creatinine (0.5-1.4) mg/dL Estim Creat Clear Calc Estimated GFR POC Glucose 167 H (60-115) mg/dL Random Glucose (60-115) mg/dL Lactic Acid 1.7 (0.5-2.0) mmol/L Calcium (8.4-10.2) mg/dL Magnesium (1.6-2.6) mg/dL Total Bilirubin (0.0-1.0) mg/dL Direct Bilirubin (0.0-0.5) mg/dL AST (5-37) U/L ALT (0-40) U/L Alkaline Phosphatase (39-117) U/L C-Reactive Protein (< or = 0.50) mg/dL B-Natriuretic Peptide (<100) pg/mL Total Protein (6.5-8.0) g/dL Albumin (3.5-5.0) g/dL COVID-19 ([facility]) (Negative) COVID-19 Clin Com <MARC Chung - Last Filed: 07/16/22 01:52> Independent Interpretation I performed an independent interpretation of an: Plain X-Ray (XR/XR knee LT 4V IMPRESSION: 1. Nonspecific cortical irregularity along the posterior surface of the tibial plateau, likely d egenerative in nature with well-corticated margins, however a nondisplaced fracture is difficult to exclude, recommend relation with point tenderness. 2. Moderate degenerati), Ultrasound (*POSITIVE DVT. 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 ) and CT Scan <MARC Chung - Last Filed: 07/16/22 01:52> Critical Care Time Critical Care Time Critical Care Time: Yes <MARC Chung - Last Filed: 07/16/22 01:52> Total Critical Care Time: 60 <MARC Chung - Last Filed: 07/16/22 01:52> Attestation: I attest to this time spent taking care of the patient, obtaining history, physical, reviewing labs, imaging, speaking to my attending, speaking to specialist. <MARC Chung - Last Filed: 07/16/22 01:52> Discharge Plan Discharge Clinical Impression: Cellulitis, DVT (deep venous thrombosis), CONSTANCE (acute kidney injury), Non compliance w medication regimen, Pulmonary embolism <MARC Stovall - Last Filed: 07/15/22 18:20> Patient Disposition: Still a Patient <MARC Stovall - Last Filed: 07/15/22 18:20> Prescriptions: No Action albuterol sulfate 90 mcg/actuation HFA aerosol inhaler 2 inh inhalation QID PRN (Reason: shortness of breath or wheezing) Qty: 6.7 0RF glipizide 10 mg tablet 10 mg PO DAILY Qty: 30 0RF metformin 500 mg tablet 1,000 mg PO BID Qty: 60 0RF lisinopril 10 mg Tablet 10 mg PO DAILY warfarin 3 mg Tablet 3 mg PO DAILY@1800 atorvastatin 80 mg Tablet 80 mg PO DAILY <MARC Stovall Last Filed: 07/15/22 18:20>
[2022-07-15 20:04] LABS: MANUAL DIFF FLAG NO
[2022-07-15 20:11] LABS: INTERNATIONAL NORM RATIO 0.9 (0.9-1.1); Prothrombin Time 10.3 SEC (10.0-13.1)
[2022-07-15 20:13] LABS: Basophils Percent Auto 0.4 % (0-2); Eosinophils Absolute Auto 0.1 X10*3/uL (0.0-0.4); Hematocrit 43.2 % (42.0-52.0); Hemoglobin 15.3 g/dl (14.0-18.0); Imm Gran Abs Auto 0.04 X10*3/uL (0.00-0.03); Imm Gran Pct Auto 0.4 % (0.0-0.4); Lymphocytes Absolute Auto 1.1 X10*3/uL (1.2-4.9); Lymphocytes Percent Auto 10.6 % (20-40); Mean Corpuscular HGB Conc 35.4 g/dl (31.0-36.0); Mean Corpuscular Hemoglobin 29.9 pg (27.0-33.0); Mean Corpuscular Volume 84.4 fL (80.0-98.0); Mean Platelet Volume 10.1 fL (9.4-12.4); Monocytes Absolute Auto 0.6 X10*3/uL (0.1-1.2); Neutrophils Absolute Auto 8.1 x10*3/uL (2.0-8.3); Neutrophils Percent Auto 81.6 % (45-73); Platelet Count 186 X10*3/uL (160-400); Red Blood Count 5.12 X10*6/uL (4.60-5.80); Red Cell Distribution Width 12.4 % (11.0-16.0); White Blood Count 9.9 X10*3/uL (4.8-10.8)
[2022-07-15 20:14] LABS: Partial Thromboplastin Time 35.9 SEC (26.0-36.4)
[2022-07-15 20:19] LABS: COVID-19 Test Negative (Negative); IDNOW Serial# 08D9AD1C
[2022-07-15 20:27] LABS: B Type Natriuretic Peptide 37 pg/mL (<100)
[2022-07-15 20:30] LABS: Alanine Aminotransferase 8 U/L (0-40); Albumin Level 4.4 g/dL (3.5-5.0); Alkaline Phosphatase 146 U/L (39-117); Anion Gap 17 (12-20); Aspartate Amino Transferase 12 U/L (5-37); Bilirubin Direct 0.2 mg/dL (0.0-0.5); Bilirubin Total 0.6 mg/dL (0.0-1.0); Blood Urea Nitrogen 19 mg/dL (9-16); Calcium 9.8 mg/dL (8.4-10.2); Carbon Dioxide 26 mmol/L (22-29); Chloride 95 mmol/L (96-108); Estimated Glomerular Filt Rate 42; Glucose Random 562 mg/dL (60-115); Potassium 4.5 mmol/L (3.3-5.1); Sodium 133 mmol/L (135-145); Total Protein 7.8 g/dL (6.5-8.0)
[2022-07-15] MEDS: 0.9 % Sodium Chloride 1,000 ML 999 ML IV ×3 (20:59→23:00)
[2022-07-15] MEDS: Piperacillin Sodium/Tazobactam 3.375 GM in 0.9 % Sodium Chloride 50 ML IV (20:59)
[2022-07-15] MEDS: Insulin Regular, Human 100 UNIT/ML 3 ML VIAL 10 UNIT IVPUSH (21:04)
[2022-07-15 21:12] LABS: Lactic Acid 1.7 mmol/L (0.5-2.0)
--- NOTE | 2022-07-15 21:29 | PHA.MEDREC ---
MED REC COMPLETE, PATIENT HAS NOT BEEN COMPLIANT WITH MEDICATIONS PER [facility] Pharmacy Consult ? Medication Reconciliation Pharmacy has completed the medication reconciliation.
[2022-07-15 22:01] VITALS: BP 91/41; PULSE 76; RESP 13; TEMP 36.8; O2SAT 96
[2022-07-15] MEDS: Enoxaparin Sodium 80 MG/0.8 ML SYRINGE 65 MG SUBCUT (22:12)
[2022-07-15 22:14] LABS: C Reactive Protein 6.87 mg/dL (< or = 0.50)
--- NOTE | 2022-07-15 22:17 | PC.NURSE ---
Chris GANDHI informed this RN that patients blood pressure was trending low, this Rn spoke with MARC Clarke who requested an additional liter of fluids be given. Pt has been placed in trendelenburg and has an additional liter of fluids running at this time
[2022-07-15 22:19] VITALS: BP 96/45; PULSE 77; RESP 13; O2SAT 97
[2022-07-15 22:41] VITALS: BMI 25.2
[2022-07-15 22:42] VITALS: BP 120/60; PULSE 79; RESP 16
[2022-07-15 22:50] LABS: Erythrocyte Sedimentation Rate 28 MM/HR (0-15)
[2022-07-15] MEDS: iohexoL 350 MG/ML 100 ML INFUS..BTL 85 ML IV (23:32)
--- NOTE | 2022-07-15 23:32 | PC.NURSE ---
assumed care of pt pt just returned from CT aox3 no apparent distress, no sob, able to speak in full sentences will CTM
[2022-07-16] VITALS (21 sets, daily range): BP systolic 70–141; BP diastolic 41–79; PULSE 53–73; RESP 10–20; TEMP 36.2–36.9; O2SAT 95–100; BMI 25.9
--- NOTE | 2022-07-16 | ECG_ITS ---
Test Reason : hypotension Blood Pressure : / mmHG Vent. Rate : 061 BPM Atrial Rate : 061 BPM P-R Int : 166 ms QRS Dur : 092 ms QT Int : 416 ms P-R-T Axes : 069 065 077 degrees QTc Int : 418 ms Normal sinus rhythm Septal infarct (cited on or before 16-JUL-2022) Abnormal ECG When compared with ECG of 16-JUL-2022 01:22, Premature atrial complexes are no longer Present Referred By: Edward Oliver Electronically Signed By:MEET JARAMILLO MD
[2022-07-16] MEDS: Heparin Sodium,Porcine/1/2NS 25,000 UNIT/250 ML IV.SOLN 9.65 UNIT IVCONT (00:45)
--- NOTE | 2022-07-16 00:45 | PC.NURSE ---
heparin drip started [id number] units in 250mL per protocol 14 units/68.9 kg/hr aPTT 35.9 *see labs from ~1900 hrs
--- NOTE | 2022-07-16 01:21 | ECG_ITS ---
Test Reason : HYPOTENSIVE Blood Pressure : / mmHG Vent. Rate : 072 BPM Atrial Rate : 072 BPM P-R Int : 166 ms QRS Dur : 094 ms QT Int : 416 ms P-R-T Axes : 071 067 069 degrees QTc Int : 455 ms Sinus rhythm with Premature atrial complexes Septal infarct (cited on or before 16-JUL-2022) Abnormal ECG When compared with ECG of 12-MAR-2022 11:19, Premature atrial complexes are now Present Serial changes of evolving Septal infarct Present Referred By: Michaela Crawford Electronically Signed By:MEET JARAMILLO MD
--- NOTE | 2022-07-16 01:22 | PC.NURSE ---
palpable bilat popliteal pulses
--- NOTE | 2022-07-16 01:27 | PC.NURSE ---
Addendum entered by Felicity Crow 07/16/22 01:29: @0121 87/50 bp Original Note: pt states no pain at this time, denies dizziness, n/v pt repositioned to reverse Trendelenberg d/t low BPs, Dr Schafer aware
[2022-07-16 01:32] LABS: Glucose, Whole Blood 167 mg/dL (60-115)
--- NOTE | 2022-07-16 01:43 | PC.NURSE ---
per DR Schafer patient to receive cefazolin when in admitting room (ICU) to get central line
--- NOTE | 2022-07-16 02:11 | PM.CCHP ---
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 alcohol abuse,? cocaine abuse, and DVT supposed to be on Coumadin but is noncompliant,? presented to the emergency room with complaints unable to walk x2 weeks. Patient reports x 2 weeks of left knee and left lower extremity pain and swelling.? ? In the emergency room? his vitals were initially stable, stable laboratory data. Initially unable palpate pulses on left lower extremity and extremity cold to touch. Venous duplex consistent with complete occlusion of the left common femoral through peroneal veins. Later return of pulses and extremity warm to touch. Not likely arterial? He received lovenox.? CTA with small pulmonary emboli in the segmental pulmonary artery in the right lower lobe.? No signs of heart strain.? DVT present within the left common femoral vein left external iliac, left common iliac vein extending into the IVC and the level of L3-L4.? There is also trace thrombus in the right common iliac vein.? Unremarkable CT of the abdomen and pelvis. Dr Kingston, Vascular surgery was consulted by ED provider. Recommended heparin drip instead of lovenox and NPO after midnight.? Patient blood pressure dropped to? systolic of 70s, with mild improvement after 2 liter bolus.? Will be admitted to the ICU for? closely hemodynamically monitoring Review of Systems Review of Systems: as per HPI Yes all other systems are reviewed and are negative [facility] Social History Social History Alcohol intake: current Alcohol intake frequency: a few times a month Patient Tobacco Use Status: Former Tobacco user Smoked in Last 30 Days: Yes Use of substances other than those prescribed or required for medical reasons: Yes Substance Use Type: Crack/Cocaine Advance Directives: No Advance Directives Information Provided: No Nutrition Risks: Diabetes new onset/Uncontrolled Meds Allergies Allergy/AdvReac Type Severity Reaction Status Date / Time No Known Allergies Allergy Verified 03/12/22 10:49 Active Medications: Current Medications Acetaminophen (Acetaminophen 325 Mg Tablet) 650 mg PO Q6H PRN PRN Reason: Pain, Mild (Pain Scale 1-3) Docusate Sodium (Docusate Sodium 100 Mg Capsule) 100 mg PO DAILY PRN PRN Reason: Constipation Heparin Sodium (Porcine) (Heparin Sodium,Porcine 5,000 Unit/Ml Vial) 5,500 unit 80 unit/kg (5500 unit) IVPUSH PROTOCOL BOLUS PRN; Protocol PRN Reason: 80 unit/kg - Heparin Protocol Heparin Sodium (Porcine) (Heparin Sodium,Porcine 5,000 Unit/Ml Vial) 2,800 unit 40 unit/kg (2800 unit) IVPUSH PROTOCOL BOLUS PRN; Protocol PRN Reason: 40 unit/kg - Heparin Protocol Cefazolin Sodium/Dextrose (Ancef) 2 gm in 50 mls @ 100 mls/hr IV Q8H [facility] Ondansetron HCl (Ondansetron Hcl 4 Mg/2 Ml Vial) 4 mg IVPUSH Q8H PRN PRN Reason: Nausea and Vomiting Pharmacy Consult (Consult Rx Perform Med Rec) 1 each MISCELLANE ONCE PRN PRN Reason: Consult order Sodium Chloride (0.9 % Sodium Chloride Flush 3 Ml Syringe) 3 ml IVFLUSH QSHIFT [facility] Home Medications Medication Instructions Recorded Confirmed Last Taken Type atorvastatin 80 mg tablet 80 mg PO DAILY 07/15/22 07/15/22 07/15/22 History lisinopril 10 mg tablet 10 mg PO DAILY 07/15/22 07/15/22 07/15/22 History warfarin 3 mg tablet 3 mg PO DAILY@1800 07/15/22 07/15/22 07/15/22 History Physical Exam Vital Signs: Vital Signs: Last Vital Signs Temp 98.2 F 07/15/22 22:01 Pulse 68 07/16/22 01:55 Resp 12 07/16/22 01:55 BP 98/49 L 07/16/22 01:55 Pulse Ox 98 07/16/22 01:55 O2 Del Method Room Air 07/16/22 01:55 BMI result Body Mass Index 25.2 ?General:? Alert oriented x3 no acute distress.? Speaking full sentences.? Following all commands. ?HEENT:? Head is normocephalic, atraumatic, pupils equal round reactive to light accommodation bilaterally. Buccal mucosa is dry, Neck is supple ?Cardiac:? Sinus, Clear S1-S2, no murmurs rubs or gallops. + 2 left lower extremity edema ?Pulmonary:? Clear to auscultation, no wheezes, rales or rhonchi. ?Abdomen:? ?Abdomen soft, non-tender, non-distended. Normal bowel sounds. No pulsatile mass. ?Musculoskeletal:? Moving all 4 extremities upon request a major joints, there is no crepitus or tenderness.? The strength is 5/5 bilaterally and throughout all 4 extremities.? Gait not assessed at this point. ?Neurologic:? No focal deficits noted.Motor strength as above.?? ?Skin:? erythema on left extremity extending from knee to toes. right extremity very dry. Vascular:? 2+ pulses upper and lower extremities distally.? Results Labs 07/15/22 19:58 07/15/22 19:58 Labs: Laboratory Results - last 24 hr 07/15/22 07/15/22 07/15/22 19:58 19:58 19:58 MCV 84.4 MCH 29.9 MCHC 35.4 RDW 12.4 Plt Count 186 D MPV 10.1 Immature Gran % (Auto) 0.4 Neut % (Auto) 81.6 H Lymph % (Auto) 10.6 L [place] % (Auto) 6.0 Eos % (Auto) 1.0 Baso % (Auto) 0.4 Lymph # (Auto) 1.1 L [place] # (Auto) 0.6 Eos # (Auto) 0.1 Baso # (Auto) 0.0 Abs Immat Gran (auto) 0.04 H Absolute Neuts (auto) 8.1 Absolute Nucleated RBC 0.000 Nucleated RBC % (auto) 0.0 ESR PT 10.3 INR 0.9 APTT 35.9 Anion Gap 17 Estim Creat Clear Calc 36.0 Estimated GFR 42 POC Glucose Random Glucose 562 H* Lactic Acid Calcium 9.8 Magnesium 2.0 Total Bilirubin 0.6 Direct Bilirubin 0.2 AST 12 ALT 8 Alkaline Phosphatase 146 H C-Reactive Protein 6.87 H B-Natriuretic Peptide Total Protein 7.8 Albumin 4.4 COVID-19 ([facility]) COVID-19 Clin Com 07/15/22 07/15/22 07/15/22 19:58 19:58 19:58 MCV MCH MCHC RDW Plt Count MPV Immature Gran % (Auto) Neut % (Auto) Lymph % (Auto) [place] % (Auto) Eos % (Auto) Baso % (Auto) Lymph # (Auto) [place] # (Auto) Eos # (Auto) Baso # (Auto) Abs Immat Gran (auto) Absolute Neuts (auto) Absolute Nucleated RBC Nucleated RBC % (auto) ESR 28 H PT INR APTT Anion Gap Estim Creat Clear Calc Estimated GFR POC Glucose Random Glucose Lactic Acid Calcium Magnesium Total Bilirubin Direct Bilirubin AST ALT Alkaline Phosphatase C-Reactive Protein B-Natriuretic Peptide 37 Total Protein Albumin COVID-19 ([facility]) Negative COVID-19 Clin Com See Note 07/15/22 07/16/22 20:49 01:28 MCV MCH MCHC RDW Plt Count MPV Immature Gran % (Auto) Neut % (Auto) Lymph % (Auto) [place] % (Auto) Eos % (Auto) Baso % (Auto) Lymph # (Auto) [place] # (Auto) Eos # (Auto) Baso # (Auto) Abs Immat Gran (auto) Absolute Neuts (auto) Absolute Nucleated RBC Nucleated RBC % (auto) ESR PT INR APTT Anion Gap Estim Creat Clear Calc Estimated GFR POC Glucose 167 H Random Glucose Lactic Acid 1.7 Calcium Magnesium Total Bilirubin Direct Bilirubin AST ALT Alkaline Phosphatase C-Reactive Protein B-Natriuretic Peptide Total Protein Albumin COVID-19 ([facility]) COVID-19 Clin Com Imaging Radiologist's Impressions: Impressions Knee X-Ray 07/15/22 18:29 IMPRESSION: 1. Nonspecific cortical irregularity along the posterior surface of the tibial plateau, likely degenerative in nature with well-corticated margins, however a nondisplaced fracture is difficult to exclude, recommend relation with point tenderness. 2. Moderate degenerative osteoarthritis of the medial compartment. 3. Small joint effusion. 4. Subtle chondrocalcinosis. 5. Diffuse nonspecific soft tissue thickening/swelling. Duplex Scan Lower Extremity Artery 07/15/22 18:45 IMPRESSION: * Although there are biphasic waveforms of bilateral femoral and popliteal arteries, there is no Doppler imaging evidence of a focal hemodynamically significant stenosis or occlusion of the examined femoral or popliteal arteries. * The lack of visualization of the posterior tibial and peroneal arteries of the right lower extremity suggests likelihood of significant stenosis or occlusion of these lower leg vessels. * There is evidence of hemodynamically significant stenosis affecting the left posterior tibial artery which has an abnormal monophasic waveform. * For a more complete anatomic assessment of the peripheral vessels, CT angiography-runoff examination could be performed. Alternatively, to further evaluate the severity of peripheral vascular disease, KESHA measurements and pulse volume recordings may be obtained at a dedicated vascular lab. Venous Duplex 07/15/22 18:52 IMPRESSION: *POSITIVE DVT. 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 This critical result was discussed with Arminda Crawford by telephone at 07/15/2022 7:15 PM and it was ascertained that the content and urgency of the report was understood at the time of direct communication. Knee CT 07/15/22 21:17 IMPRESSION: 1. No acute fracture or dislocation. 2. Tricompartmental osteoarthritis, most prominent within the medial compartment. Faint tricompartmental chondrocalcinosis. Trace joint effusion. 3. Circumferential subcutaneous edema, most prominent anteriorly. No organized fluid collection or hematoma formation. Hip/Pelvis X-Ray 07/15/22 21:51 IMPRESSION: Possible nondisplaced fracture of the right aspect of the pubic symphysis seen only on one view. Recommend correlation with point tenderness. Abdomen/Pelvis CT 07/15/22 23:30 IMPRESSION: * Small pulmonary embolism within the segmental pulmonary artery supplying the superior segment of the right lower lobe. * No evidence of right heart strain/failure. * Diffuse moderate bronchial wall thickening and scattered endobronchial secretions suggestive of bronchitis and/or asthma. * Deep venous thrombosis present within the left common femoral vein, left external iliac vein, left common iliac vein extending into the IVC to the level of L3-L4. There is also trace thrombus in the right common iliac vein * There is a 4 mm subpleural nodule along the lateral basal segment of left lower lobe. No follow-up imaging recommended required per Fleischner Society guidelines. VTE: positive This critical result was discussed with Dr Crawford at 07/16/2022 12:05 AM and it was ascertained that the content and urgency of the report was understood at the time of direct communication. Chest CTA 07/15/22 23:30 IMPRESSION: * Small pulmonary embolism within the segmental pulmonary artery supplying the superior segment of the right lower lobe. * No evidence of right heart strain/failure. * Diffuse moderate bronchial wall thickening and scattered endobronchial secretions suggestive of bronchitis and/or asthma. * Deep venous thrombosis present within the left common femoral vein, left external iliac vein, left common iliac vein extending into the IVC to the level of L3-L4. There is also trace thrombus in the right common iliac vein * There is a 4 mm subpleural nodule along the lateral basal segment of left lower lobe. No follow-up imaging recommended required per Fleischner Society guidelines. VTE: positive This critical result was discussed with Dr Crawford at 07/16/2022 12:05 AM and it was ascertained that the content and urgency of the report was understood at the time of direct communication. Assessment and Plan (1) DVT (deep venous thrombosis): Status: Acute (2) Pulmonary embolism: Status: Acute (3) Hypotension: Status: Acute (4) Cellulitis: Status: Acute (5) CONSTANCE (acute kidney injury): Status: Acute (6) Non compliance w medication regimen: Status: Acute Plan Plan: Neuro: No acute issues? Cardiac:?? Multiple DVTs: ??DVT present within the left common femoral vein left external iliac, left common iliac vein extending into the IVC and the level of L3-L4.? There is also trace thrombus in the right common iliac vein. Also, ?Venous duplex consistent with complete occlusion of the left common femoral through peroneal veins. Initially left extremity without pulses, but later palpable with return of warm to extremity. Dr Kingston consulted, advised for heparin drip instead of lovenox.? Appreciate vascular Services recommendation.? Will continue heparin drip.? Hypotension:? patient initially with stable vital signs,? for later became hypotensive with systolic of 70s.? Blood pressure slightly improved to systolic of 90s? after 2 L bolus.? Obtain labs,? no elevated lactic, no increasing white count.? No evidence of infection/ cardiac dysfunction.? Pulmonary: ?pulmonary emboli: CTA with small pulmonary emboli in the segmental pulmonary artery in the right lower lobe with no signs of heart strain. Cont heparin drip.? Renal:? ??CONSTANCE-? nonoliguric.? Likely hypoperfusion. ? Received fluid bolus in ED. Will continue to trend? renal indices? closely Endo:?? ?No acute issues GI:?? ?No acute issues ID: Cellulitis: possible cellulitis of left extremity vs DVT. Will treat empirically. blood cultures pending Heme/Onc:? No acute issues. Psych:? No acute issues. Miscellaneous:? No acute issues. Prophylaxis:? IV Heparin, ? no GI prophylaxis at this time CODE:? ? Full code Critical care time: X 60 minutes of critical care time Time Spent With Patient Time: Total time managing care of this patient today ____ minutes.
[2022-07-16 02:15] LABS: Basophils Absolute Auto 0.1 X10*3/uL (0.0-0.2); Basophils Percent Auto 0.6 % (0-2); Eosinophils Absolute Auto 0.3 X10*3/uL (0.0-0.4); Eosinophils Percent Auto 3.5 % (0-4); Hematocrit 37.2 % (42.0-52.0); Imm Gran Abs Auto 0.02 X10*3/uL (0.00-0.03); Imm Gran Pct Auto 0.2 % (0.0-0.4); Lymphocytes Absolute Auto 2.3 X10*3/uL (1.2-4.9); Lymphocytes Percent Auto 26.2 % (20-40); MANUAL DIFF FLAG NO; Mean Corpuscular HGB Conc 34.9 g/dl (31.0-36.0); Mean Corpuscular Hemoglobin 29.7 pg (27.0-33.0); Mean Corpuscular Volume 84.9 fL (80.0-98.0); Mean Platelet Volume 9.5 fL (9.4-12.4); Monocytes Absolute Auto 0.7 X10*3/uL (0.1-1.2); Monocytes Percent Auto 7.4 % (2-11); Neutrophils Absolute Auto 5.5 x10*3/uL (2.0-8.3); Neutrophils Percent Auto 62.1 % (45-73); Platelet Count 175 X10*3/uL (160-400); Red Blood Count 4.38 X10*6/uL (4.60-5.80); Red Cell Distribution Width 12.6 % (11.0-16.0); White Blood Count 8.9 X10*3/uL (4.8-10.8)
[2022-07-16 02:20] LABS: Venous Blood Gas Refer to POC result
[2022-07-16 02:20] LABS: VBG Base Excess -1.5 mmol/L; VBG HCO3 24 mmol/L (22-26); VBG pCO2 44 mmHg; VBG pH 7.34 (7.32-7.43); VBG pO2 31 mmHg
[2022-07-16 02:32] LABS: Lactic Acid 1.3 mmol/L (0.5-2.0)
[2022-07-16 02:36] LABS: Anion Gap 14 (12-20); Blood Urea Nitrogen 16 mg/dL (9-16); Calcium 8.5 mg/dL (8.4-10.2); Carbon Dioxide 24 mmol/L (22-29); Chloride 108 mmol/L (96-108); Creatinine Clr Calc Pharmacy 51.8; Estimated Glomerular Filt Rate > 60; Glucose Random 146 mg/dL (60-115); Magnesium 1.9 mg/dL (1.6-2.6); Phosphorus 2.7 mg/dL (2.7-4.5); Potassium 4.6 mmol/L (3.3-5.1); Sodium 141 mmol/L (135-145)
[2022-07-16 02:40] LABS: B Type Natriuretic Peptide 54 pg/mL (<100); Troponin-I High Sensitivity 5.9 ng/L (<3.5-35.0)
--- NOTE | 2022-07-16 02:52 | PC.NURSE ---
gave report to Jesus Alberto RN pt to room 260
[2022-07-16] MEDS: ceFAZolin Sodium/Dextrose,Iso 2 GM/50 ML PIGGYBACK IV ×2 (03:44→12:11)
--- NOTE | 2022-07-16 05:41 | PC.NURSE ---
ADMIT TO 260-1 APPROX 3AM...ALERT..ORIENTED X3...DENIES SOB....DENIES PAIN OR DIZZYNESS...NSR/S.AFBIANA HR 50'S-60'S...SBP 90'S-100'S....ASYNPTOMATIC....LEF T KNEE AND THIGHT REDDENED..LEFT KNEE SWOLLEN...HEPARIN DRIP INFUSING 14 UNITS/KG/HR VIA #20 RIGHT AC SITE...2ND IV LINE STARTED TO LEFT AC WITH 320 ANGIOCATH...DENIES/OFFERS NO COMPLAINTS..FOR F/U PTT-HD 06:45
[2022-07-16 06:41] LABS: MANUAL DIFF FLAG NO
[2022-07-16] MEDS: Heparin Sodium,Porcine/1/2NS 25,000 UNIT/250 ML IV.SOLN 9.88 UNIT IVCONT (07:39)
[2022-07-16] MEDS: 0.9 % Sodium Chloride Flush 3 ML SYRINGE IVFLUSH ×2 (07:44→20:55)
[2022-07-16 07:56] LABS: Basophils Absolute Auto 0.1 X10*3/uL (0.0-0.2); Basophils Percent Auto 0.7 % (0-2); Eosinophils Absolute Auto 0.3 X10*3/uL (0.0-0.4); Eosinophils Percent Auto 3.9 % (0-4); Hematocrit 35.6 % (42.0-52.0); Hemoglobin 12.6 g/dl (14.0-18.0); Imm Gran Abs Auto 0.03 X10*3/uL (0.00-0.03); Imm Gran Pct Auto 0.4 % (0.0-0.4); Lymphocytes Absolute Auto 2.3 X10*3/uL (1.2-4.9); Lymphocytes Percent Auto 28.4 % (20-40); Mean Corpuscular HGB Conc 35.4 g/dl (31.0-36.0); Mean Corpuscular Hemoglobin 30.4 pg (27.0-33.0); Mean Corpuscular Volume 85.8 fL (80.0-98.0); Mean Platelet Volume 10.3 fL (9.4-12.4); Monocytes Absolute Auto 0.6 X10*3/uL (0.1-1.2); Monocytes Percent Auto 6.7 % (2-11); Neutrophils Absolute Auto 4.9 x10*3/uL (2.0-8.3); Neutrophils Percent Auto 59.9 % (45-73); Platelet Count 180 X10*3/uL (160-400); Red Blood Count 4.15 X10*6/uL (4.60-5.80); Red Cell Distribution Width 12.5 % (11.0-16.0); White Blood Count 8.2 X10*3/uL (4.8-10.8)
[2022-07-16 07:58] LABS: PTT Heparin Drip 68.6 SEC (53-77.9)
[2022-07-16 08:18] LABS: Alanine Aminotransferase < 6 U/L (0-40); Alkaline Phosphatase 92 U/L (39-117); Anion Gap 12 (12-20); Aspartate Amino Transferase 9 U/L (5-37); Bilirubin Total 0.4 mg/dL (0.0-1.0); Blood Urea Nitrogen 14 mg/dL (9-16); Calcium 8.4 mg/dL (8.4-10.2); Carbon Dioxide 23 mmol/L (22-29); Chloride 110 mmol/L (96-108); Creatinine Clr Calc Pharmacy 61.7; Estimated Glomerular Filt Rate > 60; Glucose Random 111 mg/dL (60-115); Potassium 3.8 mmol/L (3.3-5.1); Sodium 141 mmol/L (135-145); Total Protein 5.4 g/dL (6.5-8.0)
[2022-07-16 08:31] LABS: Alanine Aminotransferase < 6 U/L (0-40); Alkaline Phosphatase 100 U/L (39-117); Anion Gap 11 (12-20); Aspartate Amino Transferase 9 U/L (5-37); Bilirubin Total 0.4 mg/dL (0.0-1.0); Blood Urea Nitrogen 14 mg/dL (9-16); Calcium 8.4 mg/dL (8.4-10.2); Carbon Dioxide 25 mmol/L (22-29); Chloride 110 mmol/L (96-108); Creatinine Clr Calc Pharmacy 63.1; Estimated Glomerular Filt Rate > 60; Glucose Random 111 mg/dL (60-115); Magnesium 1.8 mg/dL (1.6-2.6); Phosphorus 2.7 mg/dL (2.7-4.5); Potassium 3.8 mmol/L (3.3-5.1); Sodium 142 mmol/L (135-145); Total Protein 5.5 g/dL (6.5-8.0)
[2022-07-16] MEDS: Albumin Human 25 % 100 ML IV ×2 (09:36→10:44)
--- NOTE | 2022-07-16 10:04 | MHC.CM.PN ---
Attempted to meet with pt to discuss d/c planning: pt in bed with covers over head: states I'm busy when CM introduced self and requested information. CM to approach at another time.
--- NOTE | 2022-07-16 11:38 | P.CONGS_ITS ---
History of Present Illness Consult details Consult date: 07/16/22 Reason for consult: other (dvt/pe) Narrative: Very complex 71-year-old gentleman presents for evaluation regarding DVT and PE. He was seen in the emergency room yesterday evening. He does have a prior history of DVT and questionable history of stroke. He had been on anticoagulant its which he has been fairly noncompliant with. He does have a prior history polysubstance abuse. He presented to the emergency room with significant swelling of the left lower extremity. He was found to have extensive DVT of the left lower extremity and upon further workup was found to have a PE. He now presents to us for vascular follow-up. Review of Systems Constitutional: Constitutional: Reports as per HPI ENT: Reports system reviewed and no additional complaints, except as documented Cardiovascular: Cardiovascular: Denies chest pain, Denies chest pain at rest and Denies chest pain with activity Respiratory: Respiratory: Denies chest congestion and Denies cough Gastrointestinal: Gastrointestinal: Reports no additional gastrointestinal complaints Musculoskeletal: Musculoskeletal: Denies abnormal gait Integumentary/Breasts: Skin/Breast: Reports pruritus and Denies wounds Neurologic: Reports system reviewed and no additional complaints, except as documented and Denies abnormal gait Psychiatric: Psychiatric: Denies no additional psychiatric complaints [facility] Social History Social History Alcohol intake: current Alcohol intake frequency: a few times a month Patient Tobacco Use Status: Former Tobacco user Smoked in Last 30 Days: Yes Use of substances other than those prescribed or required for medical reasons: Yes Substance Use Type: Crack/Cocaine Currently Displaying Signs/Symptoms of Drug Intoxication Withdrawal: No Advance Directives: No Advance Directives Information Provided: No Nutrition Risks: Diabetes new onset/Uncontrolled Meds Allergies Allergy/AdvReac Type Severity Reaction Status Date / Time No Known Allergies Allergy Verified 03/12/22 10:49 Active Medications: Current Medications Acetaminophen (Acetaminophen 325 Mg Tablet) 650 mg PO Q6H PRN PRN Reason: Pain, Mild (Pain Scale 1-3) Docusate Sodium (Docusate Sodium 100 Mg Capsule) 100 mg PO DAILY PRN PRN Reason: Constipation Heparin Sodium (Porcine) (Heparin Sodium,Porcine 5,000 Unit/Ml Vial) 5,500 unit 80 unit/kg (5500 unit) IVPUSH PROTOCOL BOLUS PRN; Protocol PRN Reason: 80 unit/kg - Heparin Protocol Heparin Sodium (Porcine) (Heparin Sodium,Porcine 5,000 Unit/Ml Vial) 2,800 unit 40 unit/kg (2800 unit) IVPUSH PROTOCOL BOLUS PRN; Protocol PRN Reason: 40 unit/kg - Heparin Protocol Heparin Sodium/Sodium Chloride (Heparin Sodium,Porcine/1/2ns) 25,000 unit in 250 mls @ 0 mls/hr IVCONT .Q0M [facility]; Protocol Last Titration: 07/16/22 08:45 Dose: 14 units/kg/hr, 9.88 mls/hr Cefazolin Sodium/Dextrose (Ancef) 2 gm in 50 mls @ 100 mls/hr IV Q8H [facility] Insulin Human Lispro (Insulin Lispro 100 Unit/Ml 3 Ml Vial) 0 unit SUBCUT QIDACHS [facility]; Protocol Ondansetron HCl (Ondansetron Hcl 4 Mg/2 Ml Vial) 4 mg IVPUSH Q8H PRN PRN Reason: Nausea and Vomiting Pharmacy Consult (Consult Rx Perform Med Rec) 1 each MISCELLANE ONCE PRN PRN Reason: Consult order Sodium Chloride (0.9 % Sodium Chloride Flush 3 Ml Syringe) 3 ml IVFLUSH QSHIFT [facility] Last Admin: 07/16/22 07:44 Dose: 3 ml Home Medications Medication Instructions Recorded Confirmed Last Taken Type atorvastatin 80 mg tablet 80 mg PO DAILY 07/15/22 07/15/22 07/15/22 History lisinopril 10 mg tablet 10 mg PO DAILY 07/15/22 07/15/22 07/15/22 History warfarin 3 mg tablet 3 mg PO DAILY@1800 07/15/22 07/15/22 07/15/22 History Physical Exam Vital Signs: Vital Signs: Last Vital Signs Temp 98.0 F 07/16/22 08:00 Pulse 66 07/16/22 11:00 Resp 15 07/16/22 11:00 BP 97/45 L 07/16/22 11:00 Pulse Ox 97 07/16/22 11:00 O2 Del Method Room Air 07/16/22 11:00 BMI result Body Mass Index 25.9 Const: General: cooperative, healthy appearing and comfortable Orientation/consciousness: oriented to person, oriented to place and oriented to time Neck: Carotids: no bruits Chest: Chest palpation & inspection: normal inspection of the chest and normal palpation of entire chest wall Resp: Effort & Inspection: normal respiratory effort and able to speak in complete sentences Cardio: Rate: regular rate Heart sounds: S1 normal heart sound present and S2 normal heart sound present Peripheral pulses: Peripheral pulses 2+ throughout GI: Inspection: Yes normal to inspection Skin: Other: +2 edema, left leg CEAP Classification C4 - skin color changes Ep - Etiology Primary Ad - deep P - reflux General skin exam: dry skin Neuro: General: oriented to person, oriented to place and oriented to time Extrem: Right lower extremity: full ROM, normal capillary refill and edema Left lower extremity: full ROM, normal capillary refill and edema Psych: Mental Status: mental status grossly normal Results Labs 07/16/22 06:36 07/16/22 06:36 Labs: Abnormal lab results 07/15/22 07/15/22 07/15/22 Range/Units 19:58 19:58 19:58 RBC (4.60-5.80) X10*6/uL Hgb (14.0-18.0) g/dl Hct (42.0-52.0) % Neut % (Auto) 81.6 H (45-73) % Lymph % (Auto) 10.6 L (20-40) % Lymph # (Auto) 1.1 L (1.2-4.9) X10*3/uL Abs Immat Gran (auto) 0.04 H (0.00-0.03) X10*3/uL ESR 28 H (0-15) MM/HR Sodium 133 L (135-145) mmol/L Chloride 95 L (96-108) mmol/L Anion Gap (12-20) BUN 19 H (9-16) mg/dL Creatinine 1.61 H (0.5-1.4) mg/dL POC Glucose (60-115) mg/dL Random Glucose 562 H* (60-115) mg/dL Alkaline Phosphatase 146 H (39-117) U/L C-Reactive Protein 6.87 H (< or = 0.50) mg/dL Total Protein (6.5-8.0) g/dL Albumin (3.5-5.0) g/dL 07/16/22 07/16/22 07/16/22 Range/Units 01:28 02:06 02:06 RBC 4.38 L (4.60-5.80) X10*6/uL Hgb 13.0 L (14.0-18.0) g/dl Hct 37.2 L (42.0-52.0) % Neut % (Auto) (45-73) % Lymph % (Auto) (20-40) % Lymph # (Auto) (1.2-4.9) X10*3/uL Abs Immat Gran (auto) (0.00-0.03) X10*3/uL ESR (0-15) MM/HR Sodium (135-145) mmol/L Chloride (96-108) mmol/L Anion Gap (12-20) BUN (9-16) mg/dL Creatinine (0.5-1.4) mg/dL POC Glucose 167 H (60-115) mg/dL Random Glucose 146 H (60-115) mg/dL Alkaline Phosphatase (39-117) U/L C-Reactive Protein (< or = 0.50) mg/dL Total Protein (6.5-8.0) g/dL Albumin (3.5-5.0) g/dL 07/16/22 07/16/22 07/16/22 Range/Units 06:36 06:36 06:36 RBC 4.15 L (4.60-5.80) X10*6/uL Hgb 12.6 L (14.0-18.0) g/dl Hct 35.6 L (42.0-52.0) % Neut % (Auto) (45-73) % Lymph % (Auto) (20-40) % Lymph # (Auto) (1.2-4.9) X10*3/uL Abs Immat Gran (auto) (0.00-0.03) X10*3/uL ESR (0-15) MM/HR Sodium (135-145) mmol/L Chloride 110 H 110 H (96-108) mmol/L Anion Gap 11 L (12-20) BUN (9-16) mg/dL Creatinine (0.5-1.4) mg/dL POC Glucose (60-115) mg/dL Random Glucose (60-115) mg/dL Alkaline Phosphatase (39-117) U/L C-Reactive Protein (< or = 0.50) mg/dL Total Protein 5.4 L 5.5 L (6.5-8.0) g/dL Albumin 3.0 L 3.0 L (3.5-5.0) g/dL Short CBC 07/15/22 07/16/22 07/16/22 Range/Units 19:58 02:06 06:36 WBC 9.9 8.9 8.2 (4.8-10.8) X10*3/uL Hgb 15.3 13.0 L 12.6 L (14.0-18.0) g/dl Hct 43.2 37.2 L 35.6 L (42.0-52.0) % Plt Count 186 D 175 180 (160-400) X10*3/uL BMP 07/15/22 07/16/22 07/16/22 19:58 02:06 06:36 Sodium 133 L 141 141 Potassium 4.5 4.6 3.8 Chloride 95 L 108 110 H Carbon Dioxide 26 24 23 BUN 19 H 16 14 Creatinine 1.61 H 1.12 0.94 Calcium 9.8 8.5 D 8.4 07/16/22 06:36 Sodium 142 Potassium 3.8 Chloride 110 H Carbon Dioxide 25 BUN 14 Creatinine 0.92 Calcium 8.4 Liver Function 07/15/22 07/16/22 07/16/22 Range/Units 19:58 06:36 06:36 Total Bilirubin 0.6 0.4 0.4 (0.0-1.0) mg/dL Direct Bilirubin 0.2 (0.0-0.5) mg/dL AST 12 9 9 (5-37) U/L ALT 8 < 6 < 6 (0-40) U/L Alkaline Phosphatase 146 H 92 100 (39-117) U/L Albumin 4.4 3.0 L 3.0 L (3.5-5.0) g/dL All other labs normal. Assessment and Plan (1) DVT (deep venous thrombosis): Status: Acute Plan Patient notes DVT with PE. I have discussed the pathophysiology of DVT with the patient. I have also discussed risk factor modification. I have reviewed the patient's arterial testing which reveals on ultrasound and CT angiogram left leg DVT with pulmonary embolism. the patient would benefit from a left leg endovascular peripheral angiogram with possible angioplasty, stent, and/or atherectomy, and inferior vena cava filter placement. This has been discussed in detail with the patient along with risks, benefits, and complications. This includes but is not limited to bleeding, infection, heart attack, need for emergent surgical repair, limb ischemia, blood vessel damage, bleeding, punctu re, kidney injury, bruising, allergic reaction, and skin reaction. The patient demonstrates a clear understanding. We will schedule for the next appropriate time. Thank you for allowing us to assist in this patient's care. Time Spent With Patient Time: Total time managing care of this patient today _60___ minutes. Time was required for chart review, record assessment, imaging review coordination of care between ER in ICU services. In addition coordination of staff for endovascular intervention, along with direct [id number] patient care Procedures Date of Service Date of Service: 07/16/22
[2022-07-16 11:58] LABS: Glucose, Whole Blood 124 mg/dL (60-115)
[2022-07-16 13:08] LABS: B Type Natriuretic Peptide 115 pg/mL (<100); Troponin-I High Sensitivity 4.8 ng/L (<3.5-35.0)
[2022-07-16 15:21] LABS: Appearance Urine Clear; Color Urine Yellow; Glucose Urine UA >=1000 mg/dL (Negative); Leukocyte Esterase Urine Negative (Negative); Nitrite Urine Negative (Negative); PH 5.5 (5.0-9.0); Specific Gravity - Urine >= 1.030 (1.005-1.025); UMIC TRIGGER UACC YES; Urine Blood Negative (Negative); Urine Ketones Negative (Negative); Urine Protein Negative (Neg-Trace)
[2022-07-16 15:56] LABS: Bacteria Urine None Seen (None Seen); Hyaline Casts Urine 0-2 /LPF (0-2); RBC Urine 0-2 /HPF (0-2); Squamous Epithelial Cell Urine 0-2 /HPF (0-2); WBC Urine 0-5 /HPF (0-5)
--- NOTE | 2022-07-16 17:39 | P.BOP_ITS ---
Brief Operative Note Date of Service: 07/16/22 Pre-op diagnosis: DVT/PE Post-op diagnosis: same Procedure: 1. Left femoral vein declot 2. Left common iliac vein stent 3. Insertion of vena cava filter Surgeon: Chandrakant Kingston MD Anesthesia: other (197 minutes local with sedation) Was an Chemistry Professor used for this Procedure?: No Estimated blood loss (mL): 100 Condition: stable Disposition: floor
--- NOTE | 2022-07-16 17:39 | PC.NURSE ---
Lovenox requested from pharmacy. Not in PACU Pyxis
[2022-07-16] MEDS: Ketorolac Tromethamine 15 MG/ML VIAL IVPUSH ×2 (17:49→23:50)
[2022-07-16] MEDS: Enoxaparin Sodium 80 MG/0.8 ML SYRINGE 70 MG SUBCUT (17:50)
[2022-07-16] MEDS: 0.9 % Sodium Chloride 1,000 ML 100 ML IVCONT (18:36)
[2022-07-16] MEDS: Aspirin Enteric Coated 81 MG TABLET.DR PO (18:44)
--- NOTE | 2022-07-16 19:33 | PC.NURSE ---
Pt arrived from PACU to floor around 1809. Pt A+Ox4. Denies pain, SOB or N&V. Pulses and insertion sites handoff and assessed with PACU RNs. R groin insertion site C/D/I, no bleeding or hematoma. Pulses assessed and detectable with doppler. Pt to be flat for 1 hr, and 30 degrees for 1 hr per order. All safety measures maintained. Call castaneda within reach.
[2022-07-16] MEDS: Insulin Lispro 100 UNIT/ML 3 ML VIAL SUBCUT (20:53)
[2022-07-16 20:55] LABS: Glucose, Whole Blood 200 mg/dL (60-115)
[2022-07-17] VITALS (7 sets, daily range): BP systolic 97–118; BP diastolic 42–59; PULSE 55–94; RESP 14–20; TEMP 36.1–37.3; O2SAT 96–99; BMI 24.5
[2022-07-17] MEDS: Ketorolac Tromethamine 15 MG/ML VIAL IVPUSH ×2 (05:24→23:54)
[2022-07-17] MEDS: Enoxaparin Sodium 80 MG/0.8 ML SYRINGE 70 MG SUBCUT (05:24)
[2022-07-17] MEDS: 0.9 % Sodium Chloride 1,000 ML 100 ML IVCONT ×2 (05:24→15:08)
[2022-07-17 06:00] LABS: VBG HCO3 19 mmol/L (22-26); VBG pCO2 23 mmHg; VBG pH 7.52 (7.32-7.43); VBG pO2 103 mmHg
[2022-07-17 06:00] LABS: MANUAL DIFF FLAG NO
[2022-07-17 06:03] LABS: Venous Blood Gas Refer to POC result
[2022-07-17 06:07] LABS: Basophils Absolute Auto 0.1 X10*3/uL (0.0-0.2); Basophils Percent Auto 0.9 % (0-2); Eosinophils Absolute Auto 0.2 X10*3/uL (0.0-0.4); Eosinophils Percent Auto 3.3 % (0-4); Hematocrit 33.7 % (42.0-52.0); Hemoglobin 11.5 g/dl (14.0-18.0); Imm Gran Abs Auto 0.02 X10*3/uL (0.00-0.03); Imm Gran Pct Auto 0.3 % (0.0-0.4); Lymphocytes Absolute Auto 1.6 X10*3/uL (1.2-4.9); Lymphocytes Percent Auto 24.4 % (20-40); Mean Corpuscular HGB Conc 34.1 g/dl (31.0-36.0); Mean Corpuscular Hemoglobin 30.1 pg (27.0-33.0); Mean Corpuscular Volume 88.2 fL (80.0-98.0); Mean Platelet Volume 10.1 fL (9.4-12.4); Monocytes Absolute Auto 0.6 X10*3/uL (0.1-1.2); Neutrophils Absolute Auto 4.1 x10*3/uL (2.0-8.3); Neutrophils Percent Auto 62.1 % (45-73); Platelet Count 133 X10*3/uL (160-400); Red Blood Count 3.82 X10*6/uL (4.60-5.80); Red Cell Distribution Width 12.7 % (11.0-16.0); White Blood Count 6.6 X10*3/uL (4.8-10.8)
[2022-07-17 06:35] LABS: Albumin Level 3.2 g/dL (3.5-5.0); Anion Gap 14 (12-20); Blood Urea Nitrogen 12 mg/dL (9-16); Calcium 8.3 mg/dL (8.4-10.2); Carbon Dioxide 16 mmol/L (22-29); Chloride 114 mmol/L (96-108); Creatinine Clr Calc Pharmacy 69.1; Estimated Glomerular Filt Rate > 60; Glucose Random 93 mg/dL (60-115); Magnesium 1.9 mg/dL (1.6-2.6); Potassium 4.1 mmol/L (3.3-5.1); Sodium 140 mmol/L (135-145)
[2022-07-17 07:17] LABS: Glucose, Whole Blood 124 mg/dL (60-115)
--- NOTE | 2022-07-17 08:45 | W.PM.OPN ---
Operative Note Operative Note Date of Service: 07/16/22 Narrative: Angiogram report from [facility] Preoperative diagnosis: DVT with pulmonary embolism Postoperative diagnosis: Same Procedure: 1. Ultrasound-guided left popliteal vein access 2. Inferior vena cavogram 3. Percutaneous transluminal venous mechanical thrombectomy (24052) 4. Radiologic supervision and interpretation 5. Insertion of left common iliac vein stent 6. Ultrasound-guided right common femoral vein access 7. Insertion of IVC filter Surgeon:Chandrakant Kingston M.D., FACS, RPVI Media Buyer:None Anesthesia: Local with moderate conscious sedation. Total intraservice moderate sedation time was 197 minutes. I monitored the patient's level of consciousness and physiologic status continuously throughout the procedure. Specimens:none Drains:none Estimated blood loss: Less than 10 ml Implant: Medtronic Abre 16 x 100 stent; Hina Cynthia IVC filter Indications: 71-year-old gentleman with a history of prior DVT who was not on anticoagulation developed significant swelling of the left lower extremity. Upon workup he was discovered to have DVT and PE. It was also noted on CT scan that he did have compression of the left iliac vein. He now presents for endovascular treatment. The patient has signed the informed consent after reviewing risks, complications, benefits, and alternatives previously discussed with the patient. The patient was given the opportunity to ask any additional questions or voice any concerns. All questions were answered to the patient's satisfaction. Procedure in detail: Patient was brought to the angiography suite prior to which a time-out was called for patient identification and site verification. The patient was placed in a prone position. Bilateral popliteal fossas were then prepped out. We 1st a accessed the left popliteal vein under ultrasound guidance. We then placed a percutaneous 4 [place]ian sheath. We were then able to traverse the clot with a Glidewire Advantage. We brought in a trail Blazer catheter to confirmed true lumen. At this time 5000 units of systemic heparin was administered. We dilated up the tract with a 10 [place] Lucian dilator and subsequently a [address] Lucian dilator. We then After 5 minutes of circulation time we then brought in the Clot triever over the wire system.We then placed the clot tree bur sheath and exposed the the self expanding Nitinol mesh funnel to facilitate clot removal for large-bore side port port rapid aspiration. Once this was accomplished we then advanced over the wire the clot treat her catheter within in all coring element and braided collection bag. This was brought above into the inferior vena cava up past this occlusion and extracted back. We did 4 sequential passes. The main angle of the catheter was placed at the 12:00 o'clock 03:00 o'clock 06:00 o'clock and 09:00 o'clock positions. After each subsequent pass they clot was then removed on it was flushed clear and we then brought in again through this area. Completion venogram demonstrated a significant stenosis in the left iliac vein. It was then determined that we needed to place a stent. We 1st insufflated this area with a 14 x 40 balloon. We did multiple insufflations of this area. Subsequent to that we brought in a Medtronic Abre 16 X 100 stent. We then used a 14 x 40 balloon to obtain good wall apposition. Completion venogram demonstrated good result. We were unable to reach the inferior vena cava position through the popliteal. We subsequently removed catheter wire sheath. We held 15 minutes of direct pressure. And placed a dressing on that popliteal vein. Subsequent we removed the drapes. The patient was flipped from a prone position to a supine position. We prepped and draped bilateral groins. We then accessed the right femoral vein with ultrasound guidance. We placed a 5 [address] Lucian sheath. Through this we placed a catheter and inferior vena cavogram was then undertaken. We then brought up the Bard an alley sheath. We noted that the vena cava was under 3 cm and no evidence of thrombus. We then deployed a IVC filter at the L3 position. Completion vena cavogram demonstrated excellent result. Catheter wire sheath was then removed. 10 minutes in direct pressure was held. Patient tolerated the procedure well. Returned to recovery with stable vitals. Upon return to recovery Lovenox and Toradol was administered. Interpretation of films: 1. Ultrasound demonstrates appropriate left popliteal vein puncture 2. Vena cavogram demonstrated occlusion of the distal vena cava along with thrombus throughout the entire iliofemoral system all the way down in to the femoral vein and popliteal. 3. Completion vena cavogram demonstrated resolution of clot and appropriate placement of stent. 4. Ultrasound demonstrated appropriate puncture of right common femoral vein. 5. Final completion vena cavogram demonstrated appropriate placement of IVC filter which was centered and appropriate placement of stent. Conclusion: 1. Successful clot removal, appropriate placement of left iliac vein stent , appropriate IVC filter placement 2. Anticoagulation status: Aspirin and formal anticoagulation This note is constructed using voice recognition software. While every effort has been made to ensure accuracy, registered client associate errors may have been included. Thank you for allowing me to participate in the care of your patient. Yours sincerely, Chandrakant Kingston MD, FACS, R.P.V.I.
[2022-07-17] MEDS: lisinopriL 10 MG TABLET PO (09:07)
[2022-07-17] MEDS: glipiZIDE 10 MG TABLET PO (09:07)
[2022-07-17] MEDS: Aspirin Enteric Coated 81 MG TABLET.DR PO (09:07)
[2022-07-17] MEDS: Atorvastatin Calcium 80 MG TABLET PO (09:08)
[2022-07-17] MEDS: 0.9 % Sodium Chloride Flush 3 ML SYRINGE IVFLUSH ×2 (09:08→21:07)
--- NOTE | 2022-07-17 10:42 | P.PNVS_ITS ---
Subjective Subjective Date of Service: 07/17/22 Patient reports: no new complaints and feels better Interval history: Pleasant 71-year-old gentleman status post left iliac vein D clot along with stent placement and IVC filter placement. Reports to be doing fairly well. No events overnight. States that the left leg has significantly decreased in swelling. He appears to be doing much better. Now for postprocedure follow-up. Physical Exam Vital Signs: Vital Signs: Last Vital Signs Temp 98.3 F 07/17/22 07:21 Pulse 55 07/17/22 07:21 Resp 18 07/17/22 07:21 BP 99/54 L 07/17/22 07:21 Pulse Ox 98 07/17/22 07:21 O2 Del Method Room Air 07/17/22 07:21 BMI result Body Mass Index 24.5 Const: General: cooperative, healthy appearing and no acute distress Orientation/consciousness: oriented to person, oriented to place and oriented to time HEENT: Head: Yes normal to inspection Neck: Carotids: no bruits Chest: Chest palpation & inspection: normal inspection of the chest Resp: Effort & Inspection: normal respiratory effort and able to speak in complete sentences Auscultation: clear to auscultation bilaterally Cardio: Rate: regular rate Heart sounds: S1 normal heart sound present and S2 normal heart sound present GI: Inspection: Yes normal to inspection Skin: General skin exam: no rashes or lesions noted Wounds: no wounds Neuro: General: oriented to person, oriented to place, oriented to time and CN's II-XI intact bilaterally Extrem: Other: Left leg soft palpable DP and PT pulses General: Yes normal to inspection, Yes full ROM and Yes no clubbing, cyanosis or edema Psych: Appearance: grossly normal and well kempt Speech and movement: Normal speech and movement present Affect: normal affect Progress Note: A&P Assessment and plan (1) DVT (deep venous thrombosis): Status: Acute Assessment and Plan: In short patient is stable status post left lower extremity declot, iliac vein stent placement and IVC filter placement. The concern here is that he is not compliant with his anticoagulants. I did have an extensive discussion with the patient regarding this. Although he does have a filter for protection would like to prevent further clotting and risk of pulmonary embolism. He is stable f rom my perspective for discharge. Upon discharge he will require formal anticoagulation for his DVT in addition to use of an aspirin. He can follow up with me in approximately 2 weeks time upon discharge. Thank you for allowing us to assist in this patient's care. If there are any questions or concerns please do not hesitate to contact us. Time Spent With Patient Time: Total time managing care of this patient today ____ minutes. Procedures Date of Service Date of Service: 07/17/22 Quality Stroke Does the patient have a stroke diagnosis?: No VTE Prior VTE?: Yes VTE Risk Level:: Medical - moderate - high VTE Device Contraindication: Treatment Not Indicated VTE Drug Contraindication: N/A - Med Ordered
[2022-07-17 11:49] LABS: Glucose, Whole Blood 269 mg/dL (60-115)
[2022-07-17] MEDS: Insulin Lispro 100 UNIT/ML 3 ML VIAL SUBCUT ×2 (13:37→17:20)
--- NOTE | 2022-07-17 13:54 | MHC.CM.PN ---
met with pt and his family gave alexey romo w/ explaination pt has transport home when dcd home with no servceis
--- NOTE | 2022-07-17 15:00 | P.PNIM_ITS ---
Subjective Subjective Date of Service: 07/18/22 Interval History: Feeling better this morning, less swelling left lower extremity, denies pain, no shortness of breath, no chest pain, no other acute issues overnight. Review of Systems Review of Systems: Yes all other systems are reviewed and are negative Physical Exam Vital Signs: Vital Signs: Last Vital Signs Temp 97.8 F 07/17/22 11:48 Pulse 55 07/17/22 11:48 Resp 18 07/17/22 07:21 BP 103/54 L 07/17/22 11:48 Pulse Ox 99 07/17/22 11:48 O2 Del Method Room Air 07/17/22 11:48 BMI result Body Mass Index 24.5 Const: Other: General awake alert x3 in no acute distress. Neck is supple no JVD. CVS regular rate rhythm, Respiratory lungs clear to auscultation, no respiratory distress, no wheeze, no rhonchi. Gastrointestinal abdomen soft, nontender, bowel sounds audible, no guarding , no rigidity. Extremities significant swelling left lower extremity extending from dorsum of foot towards leg Neuro nonfocal Skin no rash Psych appropriate affect Objective Data Active Medications Acetaminophen (Acetaminophen 325 Mg Tablet) 650 mg PO Q6H PRN PRN Reason: Pain, Mild (Pain Scale 1-3) Albuterol Sulfate (Albuterol Sulfate 90 Mcg 8 Gm Inhaler) 2 puff INHALE QID PRN PRN Reason: shortness of breath or wheezing Aspirin (Aspirin Enteric Coated 81 Mg Tablet.) 81 mg PO DAILY [facility] Last Admin: 07/17/22 09:07 Dose: 81 mg Documented By: DOMINGO Atorvastatin Calcium (Atorvastatin Calcium 80 Mg Tablet) 80 mg PO DAILY [facility] Last Admin: 07/17/22 09:08 Dose: 80 mg Documented By: DOMINGO Docusate Sodium (Docusate Sodium 100 Mg Capsule) 100 mg PO DAILY PRN PRN Reason: Constipation Enoxaparin Sodium (Enoxaparin Sodium 80 Mg/0.8 Ml Syringe) 70 mg 1 mg/kg (70 mg) SUBCUT Q12H [facility] Last Admin: 07/17/22 05:24 Dose: 70 mg Documented By: ALBERT Glipizide (Glipizide 10 Mg Tablet) 10 mg PO DAILY [facility] Last Admin: 07/17/22 09:07 Dose: 10 mg Documented By: DOMINGO Sodium Chloride (Ns) 1,000 mls @ 100 mls/hr IVCONT .Q10H [facility] Last Admin: 07/17/22 05:24 Dose: 100 mls/hr Documented By: ALBERT Insulin Human Lispro (Insulin Lispro 100 Unit/Ml 3 Ml Vial) 0 unit SUBCUT QIDACHS [facility]; Protocol Last Admin: 07/17/22 13:37 Dose: 6 unit Documented By: DOMINGO Ketorolac Tromethamine (Ketorolac Tromethamine 15 Mg/Ml Vial) 15 mg IVPUSH Q6H [facility] Last Admin: 07/17/22 13:37 Dose: Not Given Documented By: DOMINGO Non-Admin Reason: Patient Refused Lisinopril (Lisinopril 10 Mg Tablet) 10 mg PO DAILY [facility]; Protocol Last Admin: 07/17/22 09:07 Dose: 10 mg Documented By: DOMINGO Ondansetron HCl (Ondansetron Hcl 4 Mg/2 Ml Vial) 4 mg IVPUSH Q8H PRN PRN Reason: Nausea and Vomiting Pharmacy Consult (Consult Rx Perform Med Rec) 1 each MISCELLANE ONCE PRN PRN Reason: Consult order Sodium Chloride (0.9 % Sodium Chloride Flush 3 Ml Syringe) 3 ml IVFLUSH QSHIFT [facility] Last Admin: 07/17/22 09:08 Dose: 3 ml Documented By: DOMINGO Labs 07/17/22 05:50 07/17/22 05:50 Labs: Laboratory Results - last 24 hr 07/16/22 07/16/22 07/17/22 13:51 20:40 05:50 MCV 88.2 MCH 30.1 MCHC 34.1 RDW 12.7 Plt Count 133 L D MPV 10.1 Immature Gran % (Auto) 0.3 Neut % (Auto) 62.1 Lymph % (Auto) 24.4 Peach % (Auto) 9.0 Eos % (Auto) 3.3 Baso % (Auto) 0.9 Lymph # (Auto) 1.6 Peach # (Auto) 0.6 Eos # (Auto) 0.2 Baso # (Auto) 0.1 Abs Immat Gran (auto) 0.02 Absolute Neuts (auto) 4.1 Absolute Nucleated RBC 0.000 Nucleated RBC % (auto) 0.0 VBG pH VBG pCO2 VBG pO2 VBG HCO3 VBG O2 Saturation VBG Base Excess Anion Gap Estim Creat Clear Calc Estimated GFR POC Glucose 200 H Random Glucose Calcium Phosphorus Magnesium Albumin Urine Color Yellow Urine Appearance Clear Urine pH 5.5 Ur Specific [place] >= 1.030 H Urine Protein Negative Urine Glucose (UA) >=1000 H Urine Ketones Negative Urine Blood Negative Urine Nitrite Negative Ur Leukocyte Esterase Negative Urine RBC 0-2 Urine WBC 0-5 Ur Squamous Epith Cells 0-2 Urine Bacteria None Seen Hyaline Casts 0-2 07/17/22 07/17/22 07/17/22 05:50 05:50 05:53 MCV Cancelled MCH Cancelled MCHC Cancelled RDW Cancelled Plt Count Cancelled MPV Cancelled Immature Gran % (Auto) Neut % (Auto) Lymph % (Auto) Peach % (Auto) Eos % (Auto) Baso % (Auto) Lymph # (Auto) Peach # (Auto) Eos # (Auto) Baso # (Auto) Abs Immat Gran (auto) Absolute Neuts (auto) Absolute Nucleated RBC Cancelled Nucleated RBC % (auto) Cancelled VBG pH 7.52 H VBG pCO2 23 VBG pO2 103 VBG HCO3 19 L VBG O2 Saturation 100.0 VBG Base Excess -2.0 Anion Gap 14 Estim Creat Clear Calc 69.1 Estimated GFR > 60 POC Glucose Random Glucose 93 Calcium 8.3 L Phosphorus 3.0 Magnesium 1.9 Albumin 3.2 L Urine Color Urine Appearance Urine pH Ur Specific [place] Urine Protein Urine Glucose (UA) Urine Ketones Urine Blood Urine Nitrite Ur Leukocyte Esterase Urine RBC Urine WBC Ur Squamous Epith Cells Urine Bacteria Hyaline Casts 07/17/22 07/17/22 07:08 11:28 MCV MCH MCHC RDW Plt Count MPV Immature Gran % (Auto) Neut % (Auto) Lymph % (Auto) Peach % (Auto) Eos % (Auto) Baso % (Auto) Lymph # (Auto) Peach # (Auto) Eos # (Auto) Baso # (Auto) Abs Immat Gran (auto) Absolute Neuts (auto) Absolute Nucleated RBC Nucleated RBC % (auto) VBG pH VBG pCO2 VBG pO2 VBG HCO3 VBG O2 Saturation VBG Base Excess Anion Gap Estim Creat Clear Calc Estimated GFR POC Glucose 124 H 269 H Random Glucose Calcium Phosphorus Magnesium Albumin Urine Color Urine Appearance Urine pH Ur Specific [place] Urine Protein Urine Glucose (UA) Urine Ketones Urine Blood Urine Nitrite Ur Leukocyte Esterase Urine RBC Urine WBC Ur Squamous Epith Cells Urine Bacteria Hyaline Casts Microbiology Microbiology Results: Microbiology 07/16/22 02:06 Blood Culture - Preliminary Blood - Venous No growth after 24 hours. 07/16/22 02:06 Blood Culture - Preliminary Blood - Venous No growth after 24 hours. 07/15/22 20:49 Blood Culture - Preliminary Blood - Venous No growth after 24 hours. 07/15/22 20:49 Blood Culture - Preliminary Blood - Venous No growth after 24 hours. 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 alcohol abuse,? cocaine abuse, and DVT supposed to be on Coumadin but is noncompliant,? presented to the emergency room with complaints unable to walk x2 weeks. Patient reports x 2 weeks of left knee and left lower extremity pain and swelling.? ? Acute on chronic DVT of left common femoral vein, left external iliac, left common iliac vein extending into the IVC at the level of L3-L4., also trace thrombus in the right common iliac vein. Venous duplex consistent with complete occlusion of the left common femoral through peroneal veins. Initially treated with heparin drip as per Dr. Kingston recommendation, subsequently underwent left femoral vein declot, left common iliac stent, and IVC filter, postprocedure placed on Lovenox Noted to have improvement in left leg swelling today will transition to Eliquis and add aspirin as per vascular surgery recommendation Outpatient follow-up with Dr. Kingston in 2 weeks Discussed in length regarding compliance with anticoagulation. Hypotension:? Admitted to ICU treated with IV fluids, no evidence of infection found, blood pressure improved with fluid challenge , since BP remains soft will discontinue lisinopril and follow BP ? Pulmonary embolii: CTA with small pulmonary emboli in the segmental pulmonary artery in the right lower lobe with no signs of heart strain. Cont lovenox with a transition to oral anticoagulant ?CONSTANCE-? nonoliguric.? Likely hypoperfusion, renal function improved with IV fluids. Cellulitis: Initially question of possible cellulitis of left extremity vs DVT. blood cultures negative no fevers normal, WBC count, swelling likely related to DVT, will DC antibiotics since less likely cellulitis. Diabetes mellitus type 2 continue glipizide , insulin sliding scale, diabetic diet and monitor blood sugars DVT Prophylaxis:? Lovenox, ? CODE:? ? Full code Patient will need continued inpatient hospitalization for for extensive DVT on Lovenox subQ and for close hemodynamic monitoring with extensive DVT and PE. Time Spent With Patient Time: Total time managing care of this patient today ____ minutes. Quality Stroke Does the patient have a stroke diagnosis?: No VTE Prior VTE?: Yes VTE Risk Level:: Medical - moderate - high VTE Device Contraindication: Treatment Not Indicated VTE Drug Contraindication: N/A - Med Ordered
[2022-07-17 16:26] LABS: Glucose, Whole Blood 231 mg/dL (60-115)
[2022-07-17 18:03] LABS: Prothrombin Time 11.7 SEC (10.0-13.1)
[2022-07-17 20:41] LABS: Glucose, Whole Blood 101 mg/dL (60-115)
[2022-07-17] MEDS: Apixaban 5 MG TABLET 10 MG PO (21:06)
[2022-07-18 03:13] VITALS: BP 108/51; PULSE 55; RESP 18; TEMP 36.3; O2SAT 98
[2022-07-18 07:18] VITALS: BP 112/56; PULSE 53; RESP 16; TEMP 37; O2SAT 96
[2022-07-18 07:30] LABS: Glucose, Whole Blood 112 mg/dL (60-115)
[2022-07-18] MEDS: 0.9 % Sodium Chloride Flush 3 ML SYRINGE IVFLUSH (07:59)
[2022-07-18] MEDS: Atorvastatin Calcium 80 MG TABLET PO (07:59)
[2022-07-18] MEDS: glipiZIDE 10 MG TABLET PO (07:59)
[2022-07-18] MEDS: Apixaban 5 MG TABLET 10 MG PO (08:00)
[2022-07-18] MEDS: Aspirin Enteric Coated 81 MG TABLET.DR PO (08:00)
[2022-07-18 10:49] VITALS: BP 112/56; PULSE 53; O2SAT 96
[2022-07-18 11:19] VITALS: BP 112/56; PULSE 67; RESP 16; TEMP 36.7; O2SAT 98
[2022-07-18 11:35] LABS: Glucose, Whole Blood 188 mg/dL (60-115)
--- NOTE | 2022-07-18 11:58 | PM.DS ---
DS: Providers Provider Date of Service: 07/18/22 Date of admission: 07/16/22 02:05 Primary care physician: Dhruv Vazquez MD Consults: 07/16/22 00:09 Consult to Vascular Surgery Routine Consulting Provider: [facility] Reason for consultation: stenosis,large dvt,pe DS: Diagnosis Discharge Diagnosis (1) Hypotension: Status: Acute (2) DVT (deep venous thrombosis): Status: Acute (3) CONSTANCE (acute kidney injury): Status: Acute (4) Non compliance w medication regimen: Status: Acute (5) Pulmonary embolism: Status: Acute DS: Summary Hospital Course Hospital Course: History of presenting illness Date of Service: 07/16/22 Attending physician on admission: Earl Joseph Chief Complaint:? 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 alcohol abuse,? cocaine abuse, and DVT supposed to be on Coumadin but is noncompliant,? presented to the emergency room with complaints unable to walk x2 weeks. Patient reports x 2 weeks of left knee and left lower extremity pain and swelling.? ? In the emergency room? his vitals were initially stable, stable laboratory data. Initially unable palpate pulses on left lower extremity and extremity cold to touch. Venous duplex consistent with complete occlusion of the left common femoral through peroneal veins. Later return of pulses and extremity warm to touch. Not likely arterial? He received lovenox.? CTA with small pulmonary emboli in the segmental pulmonary artery in the right lower lobe.? No signs of heart strain.? DVT present within the left common femoral vein left external iliac, left common iliac vein extending into the IVC and the level of L3-L4.? There is also trace thrombus in the right common iliac vein.? Unremarkable CT of the abdomen and pelvis. Dr Kingston, Vascular surgery was consulted by ED provider. Recommended heparin drip instead of lovenox and NPO after midnight.? Patient blood pressure dropped to? systolic of 70s, with mild improvement after 2 liter bolus.? Will be admitted to the ICU for? 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 alcohol abuse,? cocaine abuse, and DVT supposed to be on Coumadin but is noncompliant,? presented to the emergency room with complaints unable to walk x2 weeks. Patient reports x 2 weeks of left knee and left lower extremity pain and swelling.? ? Acute on chronic DVT of? left common femoral vein, left external iliac, left common iliac vein extending into the IVC at the level of L3-L4., also trace thrombus in the right common iliac vein, patient admitted to intensive care unit due to hypotension treated with IV heparin drip, blood pressure improved with IV fluids, subsequently patient downgraded to medical floor and underwent left femoral vein declot, left common iliac stent, and IVC filter, by Dr. Kingston, postprocedure placed on Lovenox, leg swelling improved Patient then transitioned to Eliquis and aspirin as per vascular surgery recommendation, since patient remained hemodynamically stable in last 48 hours he is being discharged home prior to discharge evaluated by Physical therapy they recommend home PT Patient has been strongly recommended to take medications as prescribed and to follow up with Dr. Kingston in 2 weeks.. Hypotension:? Admitted to ICU treated with IV fluids, no evidence of infection found, blood pressure improved with fluid challenge , since BP remains soft will discontinue lisinopril. ? Pulmonary embolii:? CTA with small pulmonary emboli in the segmental pulmonary artery in the right lower lobe with no signs of heart strain. Cont oral anticoagulant as above. ?CONSTANCE-? nonoliguric.? Likely hypoperfusion, renal function improved with IV fluids. Diabetes mellitus type 2 continue glipizide , and metformin and follow diabetic diet, recommend to take Ensure 1-2 cans daily due to mild hypoalbuminemia Hyperlipidemia on high-dose statins recommend outpatient lipid profile. Time Spent with Patient Time attestation: Total time managing care of this patient today ____ minutes. Discharge coordination time: Greater than 30 minutes Quality: Safe Use of Opioids Does Pt have an Active Cancer Diagnosis on the Problem List?: No Quality: Stroke Does the patient have a stroke diagnosis?: No Physical Exam Vital Signs: Vital Signs: Last Vital Signs Temp 98.1 F 07/18/22 11:19 Pulse 67 07/18/22 11:19 Resp 16 07/18/22 11:19 BP 112/56 L 07/18/22 11:19 Pulse Ox 98 07/18/22 11:19 O2 Del Method Room Air 07/18/22 11:19 BMI result Body Mass Index 24.5 Const: Other: General awake alert x3 in no acute distress.? Neck is supple no JVD. CVS? regular rate rhythm, Respiratory lungs clear to auscultation, no respiratory distress, no wheeze, no rhonchi. Gastrointestinal abdomen soft, non tender, bowel sounds audible, no guarding , no rigidity. Extremities swelling left lower extremity improving. Neuro nonfocal Skin no rash Psych appropriate affect DS: Data Data Completed and Pending Labs on day of discharge: Laboratory Results - last 24 hr 07/17/22 07/17/22 07/17/22 16:22 17:48 20:38 PT 11.7 INR 1.0 POC Glucose 231 H 101 07/18/22 07/18/22 07:15 11:18 PT INR POC Glucose 112 188 H Preliminary micro results at discharge 07/16/22 02:06 Blood Culture - Preliminary Blood - Venous No growth after 48 hours. 07/16/22 02:06 Blood Culture - Preliminary Blood - Venous No growth after 48 hours. 07/15/22 20:49 Blood Culture - Preliminary Blood - Venous No growth after 48 hours. 07/15/22 20:49 Blood Culture - Preliminary Blood - Venous No growth after 48 hours. Discharge Plan Discharge Anticipated Discharge Date/Time: 07/18/22 11:45 Patient Disposition: Home Health Service Discharge Diagnosis: Acute on chronic DVT left lower extremity Hypotension Pulmonary embolism Acute kidney injury Referrals: Dhruv Vazquez MD [Primary Care Provider] - 1 Week Discharge Medications: New Eliquis 5 mg Tablet 10 mg PO BID Qty: 72 0RF Rx Instructions: Take Eliquis 5 mg 2 tablets twice daily for 6 more days and then Eliquis 5 mg 1 tablet twice daily aspirin 81 mg Tablet,Delayed Release (Dr/Ec) 81 mg PO DAILY Qty: 30 0RF Continued albuterol sulfate 90 mcg/actuation HFA aerosol inhaler 2 inh inhalation QID PRN (Reason: shortness of breath or wheezing) Qty: 6.7 0RF glipizide 10 mg tablet 10 mg PO DAILY Qty: 30 0RF metformin 500 mg tablet 1,000 mg PO BID Qty: 60 0RF atorvastatin 80 mg Tablet 80 mg PO DAILY Discontinued lisinopril 10 mg Tablet 10 mg PO DAILY warfarin 3 mg Tablet 3 mg PO DAILY@1800 Discharge Orders: Discharge Order (Routine); Ordered 07/18/22 Ordered By: Chari Tran Diet: Diabetic diet Activity on Discharge: As tolerated Stand Alone Forms: Patient Portal Discharge page Care Plan Goals: Left lower extremity DVT take Eliquis 5mg 2 tablet twice daily for 6 days and then Eliquis 1 tablet twice daily Physical therapy at home stop Lisinopril due to soft blood pressures, stop Coumadin Continue Lipitor and follow lipid profile as outpatient Health Concerns: Diabetes mellitus follow diabetic diet, take Ensure once or twice daily Plan of Treatment: Follow-up with Dr. Kingston in 2 weeks, outpatient follow-up with primary care physician Assessment: As above
--- NOTE | 2022-07-18 14:51 | W.MHC.F2F ---
Service Date Service Date: 07/18/22 Encounter Date of encounter: 07/18/22 Reasons for Services Signs and symptoms assessed: Significant left lower extremity DVT with unsteady gait Reason for senior care: diabetic teaching and medication management Reason for physical therapy: home safety and mobility and gait/transfer training Homebound: Leaving the home is medically contraindicated at this time without the asist of a device and/or another person due th the listed conditions above and below. Reason homebound: poor balance / fall risk and weakness related to hospital stay Certification: Based on the above findings, I certify that this patient is confined to the home and needs intermittent senior care care, physical therapy and/or speech therapy, or continues to need occupational therapy. The patient is under my care, and I have initiated the establishment of the plan of care. The patient will be followed by a physician who will periodically review the plan of care. Time Spent With Patient Time: Total time managing care of this patient today ____ minutes.
== END 2022-07-18 12:21 | disposition home health service (06) | DRG 169 ==
LOC: HO.ED 21:40 → HO.ICU 07-16 02:15 → HO.IMC 07-16 10:14
PROVIDERS: Internal Medicine; Internal Medicine Pulmonary Disease; Physician Assistant; Surgery Vascular Surgery; Admitting Provider Registered Nurse Community Health; Emergency Provider Emergency Medicine; PCP Family Medicine; Visit Provider Hospitalist
PROC: 04CD3ZZ Extirpation of Matter from Left Common Iliac Artery, Percutaneous Approach (ICD-10-PCS; principal; 2022-07-16 13:30)
DX: I82.422 Acute embolism and thrombosis of left iliac vein (principal); I26.99 Other pulmonary embolism without acute cor pulmonale; N17.9 Acute kidney failure, unspecified; I82.412 Acute embolism and thrombosis of left femoral vein; I95.9 Hypotension, unspecified; L03.116 Cellulitis of left lower limb; E86.0 Dehydration; I69.398 Other sequelae of cerebral infarction; E11.9 Type 2 diabetes mellitus without complications; F14.10 Cocaine abuse, uncomplicated; H53.9 Unspecified visual disturbance; F10.10 Alcohol abuse, uncomplicated; Z20.822 Contact with and (suspected) exposure to COVID-19; Z91.148 Patient's other noncompliance with medication regimen for other reason; Z79.84 Long term (current) use of oral hypoglycemic drugs; Z79.899 Other long term (current) drug therapy
CPT/HCPCS: 36415; 37187; 37191; 37238; 71275; 73521; 73564; 73700; 74177; 80048; 80053; 80076; 81001; 82040; 82803; 82947; 83605; 83735; 83880; 84100; 84484; 85025; 85027; 85610; 85652; 85730; 86140; 86850; 86900; 86901; 87040; 87635; 93005; 93925; 93971; 97162; 99152; 99153; 99285; C1725; C1757; C1769; C1880; C1887; C1894; J0690; J1643; J1650; J1885; J2543; P9047; Q9967

== ENCOUNTER → 2022-08-04 13:48 | Outpatient (BNVA) | payer BC, SELFPAY | PROVIDERS: PCP Internal Medicine; Visit Provider Surgery Vascular Surgery | DX: I82.402 Acute embolism and thrombosis of unspecified deep veins of left lower extremity (principal); Z95.828 Presence of other vascular implants and grafts; Z79.01 Long term (current) use of anticoagulants | CPT/HCPCS: 99212 ==

== ENCOUNTER 2022-10-09 10:49 | Outpatient (REF) | payer BC, SELFPAY ==
[2022-10-09 12:29] LABS: Blood Urea Nitrogen 6 mg/dL (9-16); Estimated Glomerular Filt Rate > 60
== END 2022-10-09 10:50 | disposition home or self-care (01) ==
LOC: HO.LAB 10:49
PROVIDERS: PCP Internal Medicine; Visit Provider Surgery Vascular Surgery
DX: Z86.718 Personal history of other venous thrombosis and embolism (principal)
CPT/HCPCS: 36415; 82565; 84520

== ENCOUNTER 2022-11-06 09:07 | Outpatient (REF) | payer BC, SELFPAY ==
--- NOTE | ~2022-11-06 | CT_ITS ---
EXAMINATION: CT ANGIOGRAPHY ABDOMEN AND PELVIS WITHOUT AND WITH CONTRAST CLINICAL INFORMATION: Left iliac vein stent evaluation; acute embolism COMPARISON: CTA chest 07/15/2022 TECHNIQUE: Initial noncontrast localizing advanced quality engineer images were obtained. A timing bolus at the level of the celiac artery was calculated. Subsequently, arterial phase multidetector volumetric imaging was performed through the abdomen and pelvis following the administration of 100 mL Omnipaque 350 intravenous contrast. No contrast reaction reported. Sagittal and coronal reformatted images were obtained on the technologist workstation. After extensive post-processing on a dedicated 3-D workstation, 3-D reformatted images were uploaded to PACS and reviewed as well. This CT examination was performed using dose optimization techniques as appropriate, variously including the following: *Automated exposure control *Adjustment of mA and/or kV according to patient size (this includes techniques or standardized protocols for targeted exams where dose is matched to indication/reason for exam; i.e. extremities or head) *Use of iterative reconstruction technique DLP: 361 mGy-cm FINDINGS: VASCULAR: Arterial: No abdominal aortic aneurysm or dissection. Distal aorta measures 1.8 cm in diameter. Mild atherosclerotic calcifications of the tortuous common iliac arteries without aneurysm. Iliofemoral arteries patent without high-grade stenosis. Celiac artery patent. Inferior mesenteric artery demonstrates mild atherosclerotic disease, but patent. Inferior mesenteric artery patent. Two right and single left renal arteries patent. Venous: Nondiagnostic for evaluation of venous structures. Common iliac stent noted in place with small amount of contrast hyperdensity interdigitating through the lumen. This may either represent venous admixture or thrombus. IVC filter noted in situ. NONVASCULAR: Lung Bases: The visualized lung bases are clear. Stable subpleural 4 mm nodule on the left lateral base. Bronchial wall thickening. Liver: Homogeneous in attenuation. Normal in size. Gallbladder: Noninflamed. Biliary System: No intrahepatic or extrahepatic biliary dilation. Pancreas: Homogeneous in attenuation. Spleen: Normal in size. Genitourinary: Bilateral kidneys demonstrate symmetric enhancement. No perinephric fluid collection. No renal calculi. No hydroureteronephrosis. Adrenal Glands: Unremarkable. Reproductive: Prostamegaly measuring 6 x 3.4 x 4.9 cm. Gastrointestinal: The visualized alimentary tract is normal in course. No evidence of obstruction. Appendix: The appendix is not visualized; however, no pericecal inflammatory changes are seen in the right lower quadrant. Peritoneum: No pneumoperitoneum. No intra-abdominal fluid collection. Lymph Nodes: No pathologically enlarged abdominal or pelvic lymph nodes. Soft Tissues/Musculoskeletal: Multilevel degenerative changes of the lumbar spine, worst at L3-L4. CT/CT angio abdomen pelvis IMPRESSION: Significantly limited study for evaluation of venous structures as the study was ordered as a CT arteriogram, not a CT venogram. As such, the left iliac vein stent is poorly evaluated, however there is suspected partial or complete thrombus within the left iliac vein stent. Further extension into the IVC cannot be evaluated on this study. If clinically indicated, recommend repeat CT abdomen/pelvis venogram for better evaluation. Fleischner guidelines were followed.
[2022-11-06] MEDS: iohexoL 350 MG/ML 100 ML INFUS..BTL IV (09:40)
== END 2022-11-06 09:08 | disposition home or self-care (01) ==
LOC: HO.CT 09:07
PROVIDERS: PCP Internal Medicine; Visit Provider Surgery Vascular Surgery
DX: Z86.718 Personal history of other venous thrombosis and embolism (principal); Z98.890 Other specified postprocedural states
CPT/HCPCS: 74174; Q9967

== ENCOUNTER 2022-11-24 14:00 | Outpatient (AMB) | payer BC, SELFPAY ==
--- NOTE | 2022-11-24 14:03 | A.OFFVIS_ITS ---
Intake Intake Visit Reasons: follow up s/p CTA 10/15/22 Intake Note: 3 mo follow up Left LE thrombectomy and IVC filter placement 07/16/22 s/p CT Abd/pelvis 11/06/22. Pt states no complaints Accompanied by: Daughter Allergies shrimp Allergy (Severe, Verified 11/24/22 14:11) Swelling HPI follow up s/p CTA 10/15/22 HPI Details Complex 71-year-old gentleman presents for follow-up regarding DVT and PE. He had undergone mechanical thrombectomy along with left iliac vein stent and IVC filter placement. He reports he is doing fairly well with this. He does remain on Eliquis but does not appear to be following the appropriate regimen. He does follow-up with a family member. He also reports that his leg is feeling fairly well and less swollen. [facility] Medical History Deep vein thrombosis (DVT) with pulmonary embolism present on admission Non compliance w medication regimen Surgical History S/P IVC filter (07/16/22) Social History (Updated 08/04/22 @ 14:00 by KEATON Velez) Alcohol intake: current Alcohol intake frequency: a few times a month Patient Tobacco Use Status: Current everyday Tobacco user Tobacco use type: Cigar Substance Use Type: Crack/Cocaine service: No Review of Systems Const Reports as per HPI ENT Reports no additional complaints Card Denies chest pain, Denies chest pain at rest and Denies chest pain with activity Resp Denies chest congestion and Denies cough GI Reports no additional complaints Musc Details: pain over varicosities, aching of lower extremities, swelling, cramping, heaviness and tiredness, itching Denies abnormal gait Skin/Breast Reports pruritus and Denies wounds Neuro Reports no additional complaints and Denies abnormal gait Psych Denies no additional complaints Physical Exam Const General: cooperative, healthy appearing and comfortable Orientation/consciousness: oriented to person, oriented to place and oriented to time Neck Carotids: no bruits Chest Chest palpation & inspection: normal inspection of the chest and normal palpation of entire chest wall Resp Effort & Inspection: normal respiratory effort and able to speak in complete sentences Cardio Rate: regular rate Heart sounds: S1 normal heart sound present and S2 normal heart sound present Peripheral pulses: Peripheral pulses 2+ throughout GI Inspection: Yes normal to inspection Skin Other: +2 edema, large rope-like varicosities greater than 4 mm CEAP Classification C4 - skin color changes Ep - Etiology Primary As - superficial veins P - reflux General skin exam: dry skin Neuro General: oriented to person, oriented to place and oriented to time Extrem Right lower extremity: full ROM, normal capillary refill and edema Left lower extremity: full ROM, normal capillary refill and edema Psych Mental Status: mental status grossly normal Results Reviewed Results Reviewed: CT scan dated 11/06/2022 - appropriately placed stent and filter. Written report and images were reviewed Assessment & Plan Assessment & Plan (1) DVT (deep venous thrombosis): Comment: 07/16/2022 - percutaneous venous thrombectomy of left leg, left common iliac stent , IVC filter (Bard Dougherty) Code(s): I82.409 - Acute embolism and thrombosis of unspecified deep veins of unspecified lower extremity Plan: In short appears to be doing relatively well from a venous standpoint. CT angiogram is within normal limits. He has not been following the appropriate anticoagulation regimen. I did provide him with a pamphlet for appropriate regimen. I will have him follow up with us in approximately 3 months time to ensure he is progressing well. At the current time would hold off on filter removal as he has been semi compliant with his anticoagulation. Once again we will reassess the situation in 3 months time. We also did discuss conservative measures including compression elevation and exercise. Thank you for allowing us to assist in his care. Coding Level of Care Code Est Pt Level 4 (14275) Diagnoses DVT (deep venous thrombosis) I82.409
== END 2022-11-24 14:28 | disposition home or self-care (01) ==
PROVIDERS: PCP Internal Medicine; Visit Provider Surgery Vascular Surgery
DX: I82.422 Acute embolism and thrombosis of left iliac vein (principal); Z95.828 Presence of other vascular implants and grafts
CPT/HCPCS: 99213

== ENCOUNTER → 2022-11-24 14:00 | Outpatient (BNVA) | payer BC, SELFPAY | PROVIDERS: PCP Internal Medicine; Visit Provider Surgery Vascular Surgery ==